=== PATIENT | female | born 1980 | race Caucasian/White ===

== ENCOUNTER → 2016-10-02 | Outpatient (CLI) | payer OTHER ==
[~2016-10-02] MED LIST: BCPILLS PO; CETITAB27 PO; CHOL20005 PO; CYM/30 PO; DESO1TAB33 PO; DULO60CA44 PO; EPP3/2 IM; HYDR200T5 PO; LEVO88TA PO; LISI-787 PO; PANT1TAB48 PO; RANI300T2 PO; SNG10 PO; WLL100 PO
[2016-10-02 15:18] LABS: BASO % 0.2 %; BASO ABS # 0.02 K/uL (0-0.2); COMPLETE YES; HEMATOCRIT 38.7 % (37-47); IG% 0.2 %; LYMPH % 21.1 %; LYMPH ABS # 1.71 K/uL (1.2-3.4); MEAN CELL VOLUME 77.7 fL (80-100); MEAN CORPUSCULAR HEMOGLOBIN 26.3 pg (25-34); MEAN CORPUSCULAR HGB CONC 33.9 g/dl (32-36); MEAN PLATELET VOLUME 10.9 fL (7.4-10.4); NEUT % 70.5 %; PLATELET COUNT 253 K/uL (130-400); RED BLOOD COUNT 4.98 M/uL (4.2-5.4); WHITE BLOOD COUNT 8.12 K/uL (4.8-10.8)
[2016-10-02 15:29] LABS: CREATININE 0.89 mg/dl (0.60-1.20)
== END | disposition home or self-care (01) ==
LOC: C.LAB1850 14:09
PROVIDERS: ATTEND Internal Medicine Rheumatology
DX: M12.30 Palindromic rheumatism, unspecified site (principal); Z79.899 Other long term (current) drug therapy; M25.50 Pain in unspecified joint

== ENCOUNTER → 2016-10-30 | Outpatient (CLI) | payer OTHER ==
--- NOTE | 2016-10-30 12:57 | DIAGNOSTIC IMAGING REPORT ---
LEFT HIP UNILATERAL 2 VIEWS CLINICAL HISTORY: Left hip pain. COMPARISON: None FINDINGS: Alignment of the left hip is anatomic. There is no fracture or suspicious lesion. There is no evidence for avascular necrosis. Joint space is preserved. IMPRESSION: Unremarkable left hip radiographs. Electronically signed by: Georges Meza M.D. 10/30/2016 12:55 PM Dictated Date/Time: 10/30/2016 12:55 PM
--- NOTE | 2016-10-30 13:04 | DIAGNOSTIC IMAGING REPORT ---
LUMBAR SPINE 5 VIEWS HISTORY: Pain M54.16 Lumbar [id number] COMPARISON: None. FINDINGS: There is no fracture. No subluxation. Disc spaces are preserved. IMPRESSION: No fracture or subluxation within the lumbar spine. Electronically signed by: Ronni Corea M.D. 10/30/2016 1:03 PM Dictated Date/Time: 10/30/2016 1:02 PM
[2016-10-30 13:12] LABS: BASO % 0.4 %; BASO ABS # 0.04 K/uL (0-0.2); COMPLETE YES; EOS % 1.2 %; HEMATOCRIT 40.9 % (37-47); IG% 0.4 %; LYMPH % 15.9 %; LYMPH ABS # 1.72 K/uL (1.2-3.4); MEAN CELL VOLUME 76.7 fL (80-100); MEAN CORPUSCULAR HEMOGLOBIN 26.8 pg (25-34); MEAN PLATELET VOLUME 11.2 fL (7.4-10.4); MONO % 7.3 %; NEUT % 74.8 %; PLATELET COUNT 252 K/uL (130-400); RED BLOOD COUNT 5.33 M/uL (4.2-5.4); WHITE BLOOD COUNT 10.81 K/uL (4.8-10.8)
[2016-10-30 13:46] LABS: ALT/SGPT 65 U/L (12-78); AST/SGOT 19 U/L (15-37); BLOOD UREA NITROGEN 11 mg/dl (7-18); BUN/CREATININE RATIO 13.4 (10-20); CALCIUM 9.1 mg/dl (8.5-10.1); CARBON DIOXIDE 27 mmol/L (21-32); CHLORIDE 100 mmol/L (98-107); CREATININE 0.84 mg/dl (0.60-1.20); GLUCOSE 81 mg/dl (70-99); POTASSIUM 3.9 mmol/L (3.5-5.1); SODIUM 138 mmol/L (136-145)
[2016-10-30 13:56] LABS: ALB/GLOB RATIO 1.1 (0.9-2); ALKALINE PHOSPHATASE 120 U/L (45-117)
== END | disposition home or self-care (01) ==
LOC: C.RAD1850 11:39
PROVIDERS: ATTEND Internal Medicine
DX: M54.16 Radiculopathy, lumbar region (principal); E03.9 Hypothyroidism, unspecified; R00.0 Tachycardia, unspecified; E55.9 Vitamin D deficiency, unspecified

== ENCOUNTER → 2016-12-05 | Day surgery (SDC) | payer OTHER ==
[2016-11-22 14:47] VITALS: BMI 35.0
[~2016-12-05] VITALS: Ht 149.9 cm; Wt 77.3 kg
[~2016-12-05] MED LIST changes: -DESO1TAB33 PO; +FENTANYL CITRATE INJ 50 MCG/1 ML 2 ML VIAL ONE; +KETAMINE HCL INJ 50 MG/ML 10 ML VIAL ONE; +LABETALOL HCL IV 5 MG/ML 20ML IV ONE; +LIDOCAINE HCL 2% 2 ML VIAL (20MG/ML) ONE; +MIDAZOLAM HCL 1 MG/ML 2ML VIAL ONE; +ONDANSETRON INJ 2 MG/ML 2 ML VIAL ONE; +SODIUM CHLORIDE 0.9% 500ML 500 ML IV ONE; +SODIUM CHLORIDE 0.9% INJ 10 ML VIAL ONE; -WLL100 PO
[2016-12-05 08:34] VITALS: TEMP 36.6
--- NOTE | 2016-12-05 08:35 | Endo History and Physical ---
History & Physical Date of Service: Dec 05, 2016. Chief Complaint: Change in bowel habits Referring Physician: Dr. Solorzano History of Present Illness 36 yo CF who presents for colonoscopy secondary to change in bowel habits. Past Medical History Anxiety, Reflux, Hypertension, Thyroid Disease, Depression Past Surgical History Hx Cardiac Surgery: No Hx Internal Defibrillator: No Hx Pacemaker: No Hx Abdominal Surgery: No Hx of Implantable Prosthesis: No Hx Post-Op Nausea and Vomiting: No Hx Cancer Surgery: No Hx Thoracic Surgery: No Hx Orthopedic: No Hx Urinary Tract Surgery: No Family History Polyp, IBD Social History Smoking Status: Former Smoker Hx Substance Use: No Hx Alcohol Use: Yes (QUIT 4-5 YEARS AGO) Allergies Coded Allergies: Codeine (Verified Allergy, Severe, ANAPHYLAXIS, 11/22/16) Egg (Verified Allergy, Severe, ANAPHYLAXIS, 11/22/16) Peanut (Verified Allergy, Severe, ANAPHYLAXIS, 11/22/16) Shellfish (Verified Allergy, Severe, ANAPHYLAXIS, 11/22/16) Uncoded Allergies: CATS,DOGS,GRASS,POLLEN,MOLD,TREES,DUST,MITES (Allergy, Unknown, 10/22/02) EGGS,SOY,NUTS,FRESH VEGGIES/FRUIT,TOMATO,CORN,BEEF,SEAFOOD,COCONUT ( Allergy, Unknown, 10/22/02) Current Medications Reported Home Medications Medications Dose Route/Sig Max Daily Dose Days Date Category Control Pills (Miscellaneous) Tab 1 Tab PO QPM 11/22/16 Reported Cymbalta (Duloxetine Hcl) 60 Mg Cap 60 Mg PO QAM 11/22/16 Reported Cymbalta (Duloxetine Hcl) 30 Mg Cap 30 Mg PO QAM 11/22/16 Reported Plaquenil (Hydroxychloroquine Sulfate) 200 Mg Tab 200 Mg PO BID 11/22/16 Reported Vitamin D3 (Cholecalciferol) 2,000 Unit Tab 1 Tab PO HS 08/18/15 Reported Zantac (Ranitidine HCl) 300 Mg Tab 300 Mg PO BID 08/18/15 Reported Protonix (Pantoprazole) 40 Mg Tab 40 Mg PO QAM 08/18/15 Reported Montelukast Sodium (Montelukast Sod) 10 Mg Tab 1 Tab PO QAM 08/18/15 Reported Zestoretic 20-12.5 mg (Lisinopril & Hydrochlorothiazi) 1 Tab Tab 2 Tab PO QAM 08/18/15 Reported Synthroid (Levothyroxine Sodium) 88 Mcg Tab 88 Mcg PO QAM 08/18/15 Reported Epipen (Epinephrine) 0.3 Mg/0.3 Ml Inj 0.3 Mg IM UD PRN 08/18/15 Reported Zyrtec-D Er 5MG/120MG (Cetirizine/Pseudoephedrine) Tabcr 1 Tab PO Q12H 06/23/13 Reported Vital Signs Weight (Kilograms): 77.27 Height (Feet): 4 Height (Inches): 10.5 Physical Exam General Appearance: WD/WN, no apparent distress Respiratory/Chest: Auscultation: breath sounds normal Cardiovascular: Heart Auscultation: RRR Abdomen: Bowel Sounds: normal Inspection & Palpation: soft, non-distended, no tenderness, guarding & rebound Assessment and Plan Assessment: 36 yo CF who presents for colonoscopy secondary to change in bowel habits. Plan: Proceed with colonoscopy.
[2016-12-05 08:37] VITALS: Ht 149.9 cm; Wt 77.3 kg
--- NOTE | 2016-12-05 09:07 | Discharge Instructions ---
Endoscopy Patient Instructions Date / Procedure(s) Performed Dec 05, 2016. Colonoscopy Allergy Information Coded Allergies: Codeine (Verified Allergy, Severe, ANAPHYLAXIS, 11/22/16) Egg (Verified Allergy, Severe, ANAPHYLAXIS, 11/22/16) Peanut (Verified Allergy, Severe, ANAPHYLAXIS, 11/22/16) Shellfish (Verified Allergy, Severe, ANAPHYLAXIS, 11/22/16) Uncoded Allergies: CATS,DOGS,GRASS,POLLEN,MOLD,TREES,DUST,MITES (Allergy, Unknown, 10/22/02) EGGS,SOY,NUTS,FRESH VEGGIES/FRUIT,TOMATO,CORN,BEEF,SEAFOOD,COCONUT ( Allergy, Unknown, 10/22/02) Discharge Date / Findings Dec 05, 2016. Colon polyp Terminal ileitis s/p biopsies Ascending colon nodule Medication Instructions OK to resume all medications today as prescribed Reported Home Medications Medications Dose Route/Sig Max Daily Dose Days Date Category Control Pills (Miscellaneous) Tab 1 Tab PO QPM 11/22/16 Reported Cymbalta (Duloxetine Hcl) 60 Mg Cap 60 Mg PO QAM 11/22/16 Reported Cymbalta (Duloxetine Hcl) 30 Mg Cap 30 Mg PO QAM 11/22/16 Reported Plaquenil (Hydroxychloroquine Sulfate) 200 Mg Tab 200 Mg PO BID 11/22/16 Reported Vitamin D3 (Cholecalciferol) 2,000 Unit Tab 1 Tab PO HS 08/18/15 Reported Zantac (Ranitidine HCl) 300 Mg Tab 300 Mg PO BID 08/18/15 Reported Protonix (Pantoprazole) 40 Mg Tab 40 Mg PO QAM 08/18/15 Reported Montelukast Sodium (Montelukast Sod) 10 Mg Tab 1 Tab PO QAM 08/18/15 Reported Zestoretic 20-12.5 mg (Lisinopril & Hydrochlorothiazi) 1 Tab Tab 2 Tab PO QAM 08/18/15 Reported Synthroid (Levothyroxine Sodium) 88 Mcg Tab 88 Mcg PO QAM 08/18/15 Reported Epipen (Epinephrine) 0.3 Mg/0.3 Ml Inj 0.3 Mg IM UD PRN 08/18/15 Reported Zyrtec-D Er 5MG/120MG (Cetirizine/Pseudoephedrine) Tabcr 1 Tab PO Q12H 06/23/13 Reported Provider Instructions Activity Restrictions - No exercising or heavy lifting for 24 hours. - Do not drink alcohol the day of the procedure. - Do not drive a car or operate machinery until the day after the procedure. - Do not make any important decisions or sign important papers in 24 hours after the procedure. Following Day: - Return to full activity which may include returning to work/school. Diet Start your diet with liquids and light foods (jello, soup, juice, toast). Then eat your usual diet if not nauseated. Treatment For Common After Affects For mild abdominal pain, bloating, or excessive gas: - Rest - Eat lightly - Lie on right side Follow-Up Information Follow-up with DR FISHER as scheduled Anesthesia Information What You Should Know You have had a procedure that required some medicine to reduce anxiety and discomfort. This treatment is called moderate sedation. After receiving the treatment, you may be sleepy, but you will be able to breathe on your own. The effects of the treatment may last for several hours. Follow these instructions along with Activity/Diet recommendations noted above: * Do NOT do anything where dizziness or clumsiness would be dangerous. * Rest quietly at home today, then you can be up and about tomorrow. * Have a responsible person stay with you the rest of today. * You may have had an I.V. today. If so, you may take the dressing off later today. Recommendations Call your doctor if: * Trouble breathing * Continuous vomiting for more than 24 hours * Temperature above 101 degrees * Severe abdominal pain or bloating * Pain not relieved by pain medicine ordered * There is increased drainage or redness from any incision * A large amount of rectal bleeding greater than 2-3 tablespoons. (If you had a polyp/s removed or have hemorrhoids, a small amount of blood - from the rectum is to be expected.) * You have any unanswered questions or concerns. IN THE EVENT OF A SERIOUS EMERGENCY, GO TO THE NEAREST EMERGENCY ROOM Your discharge instructions were prepared by provider Live Villagomez. Patient Instructions Signature Page Santa Reyes Patient (or Guardian) Signature/Date: I have read and understand the instructions given to me by my caregivers. Caregiver/RN/Doctor Signature/Date: The above-named patient and/or guardian has received patient instructions on this date. + Original Patient Signature Page (only) stays with chart. Please make copy for patient.
--- NOTE | 2016-12-05 09:10 | GI REPORT ---
Procedure Date: 12/05/2016 8:47 AM Procedure: Colonoscopy Indications: Change in bowel habits Medicines: Monitored Anesthesia Care Complications: No immediate complications. Estimated Blood Loss: Estimated blood loss: none. Procedure: Pre-Anesthesia Assessment: - Prior to the procedure, a History and Physical was performed, and patient medications and allergies were reviewed. The patient's tolerance of previous anesthesia was also reviewed. The risks and benefits of the procedure and the sedation options and risks were discussed with the patient. All questions were answered, and informed consent was obtained. Prior Anticoagulants: The patient has taken no previous anticoagulant or antiplatelet agents. ASA Grade Assessment: III - A patient with severe systemic disease. After reviewing the risks and benefits, the patient was deemed in satisfactory condition to undergo the procedure. After I obtained informed consent, the scope was passed under direct vision. Throughout the procedure, the patient's blood pressure, pulse, and oxygen saturations were monitored continuously. The Scope was introduced through the anus and advanced to the terminal ileum. The colonoscopy was performed without difficulty. The patient tolerated the procedure well. The quality of the bowel preparation was good. The terminal ileum, ileocecal valve, appendiceal orifice, and rectum were photographed. Findings: Localized inflammation, mild in severity and characterized by erosions was found in the terminal ileum. Biopsies were taken with a cold forceps for histology. One 10 mm mucosal nodule was found in the ascending colon. Biopsies were taken with a cold forceps for histology. A 8 mm polyp was found at the hepatic flexure. The polyp was flat. The polyp was removed with a hot snare. Resection and retrieval were complete. Impression: - Ileitis. Biopsied. - Mucosal nodule in the ascending colon. Biopsied. - One 8 mm polyp at the hepatic flexure, removed with a hot snare. Resected and retrieved. Recommendation: - Resume previous diet. - Continue present medications. - Repeat colonoscopy for surveillance based on pathology results. - Return to primary care physician as previously scheduled. Live Villagomez, DO 12/05/2016 9:10:11 AM This report has been signed electronically. Note Initiated On: 12/05/2016 8:47 AM I attest to the content of the Intraoperative Record and orders documented therein, exceptions below
[2016-12-05 09:25] VITALS: PULSE 95
--- NOTE | 2016-12-05 09:33 | Anesthesiology Progress Note ---
Anesthesia Post Op Note Date & Time Dec 05, 2016 at 09:32 Vital Signs Pain Intensity: 0 Vital Signs Past 12 Hours Date Time Temp Pulse Resp B/P Pulse Ox O2 Delivery O2 Flow Rate FiO2 12/05/16 09:15 101 18 134/100 100 Room Air 12/05/16 08:34 36.6 121 20 137/101 97 Room Air Notes Mental Status: alert / awake / arousable, participated in evaluation Pt Amnestic to Procedure: Yes Nausea / Vomiting: adequately controlled Pain: adequately controlled Airway Patency, RR, SpO2: stable & adequate BP & HR: stable & adequate, see Notes Hydration State: stable & adequate Anesthetic Complications: no major complications apparent The patient was given labetalol intraoperatively. Her BP in recovery remains at her baseline. The patient was told to take her home BP meds.
[2016-12-05 09:35] VITALS: BP 126/96; O2SAT 100
== END | disposition home or self-care (01) ==
LOC: C.GI 08:12
PROVIDERS: ATTEND Internal Medicine
DX: K52.9 Noninfective gastroenteritis and colitis, unspecified (principal); K63.5 Polyp of colon; K62.89 Other specified diseases of anus and rectum; K21.9 Gastro-esophageal reflux disease without esophagitis; F41.9 Anxiety disorder, unspecified; E07.9 Disorder of thyroid, unspecified; F32.9 Major depressive disorder, single episode, unspecified; Z83.79 Family history of other diseases of the digestive system; Z87.891 Personal history of nicotine dependence; Z88.5 Allergy status to narcotic agent

== ENCOUNTER → 2016-12-13 | Day surgery (SDC) | payer OTHER ==
[~2016-12-13] VITALS: Ht 149.9 cm; Wt 78.0 kg
[~2016-12-13] MED LIST changes: -FENTANYL CITRATE INJ 50 MCG/1 ML 2 ML VIAL ONE; -KETAMINE HCL INJ 50 MG/ML 10 ML VIAL ONE; -LABETALOL HCL IV 5 MG/ML 20ML IV ONE; -LIDOCAINE HCL 2% 2 ML VIAL (20MG/ML) ONE; -MIDAZOLAM HCL 1 MG/ML 2ML VIAL ONE; -ONDANSETRON INJ 2 MG/ML 2 ML VIAL ONE; -SODIUM CHLORIDE 0.9% 500ML 500 ML IV ONE; -SODIUM CHLORIDE 0.9% INJ 10 ML VIAL ONE
[2016-12-13 09:51] VITALS: BP 131/91; PULSE 100; O2SAT 96; Ht 149.9 cm; Wt 78.0 kg
--- NOTE | 2016-12-13 10:13 | History & Physical Bridge Note ---
H&P Re-Evaluation Bridge Note: I have examined the patient, reviewed the History & Physical and in the interval since the performance of the History & Physical I have noted the following changes of clinical significance: nO RECENT SYNCOPE
--- NOTE | 2016-12-13 14:44 | TILT TABLE TEST RESULTS ---
PROCEDURE PERFORMED: 1. Head up tilt table testing. STAFF ON LINE CSR: Zachary Hines MD INDICATIONS: Mrs. Santa Reyes is a 36-year-old woman with symptoms of dizziness and tachycardia associated with changes in position. PROCEDURE IN DETAIL: The patient was informed of the risks, benefits, alternatives to the intended procedure. She understood such and wished to proceed. She was taken to the electrophysiology lab where she was placed in the supine position. Baseline blood pressure and pulse rate were obtained and she was monitored continuously with telemetry during today's test. The patient was subsequently tilted up to 70 degrees and her symptoms monitored for a total of 30 minutes. Subsequent to this timeframe, the patient was returned to time position and hemodynamics were about to return to normal prior to discharge. The patient tolerated the procedure well and there were no immediate complications. FINDINGS: 1. The patient's baseline hemodynamics include a blood pressure 131/91 with a heart rate of 96. With head up tilt table testing, there was no significant change in the blood pressure. There was a gradual increase in the heart rate to 121 beats per minute at 20 minutes. No symptoms were reported during the test. VITAL SIGNS: At time of discharge include blood pressure of 122/87 with a pulse of 93. IMPRESSION: 1. Normal head up tilt table test without meeting criteria for orthostatic hypotension or pots. No syncope occurred during the test. No evidence of cardioinhibitory or vasodepressor effect. No symptoms reported during the test.
== END | disposition home or self-care (01) ==
LOC: C.CATH 09:22
PROVIDERS: ATTEND Internal Medicine Cardiovascular Disease
DX: R42 Dizziness and giddiness (principal); R00.0 Tachycardia, unspecified; I49.8 Other specified cardiac arrhythmias; I10 Essential (primary) hypertension; E03.9 Hypothyroidism, unspecified

== ENCOUNTER → 2016-12-17 | Outpatient (CLI) | payer OTHER ==
[2016-12-17 16:48] LABS: BASO % 0.4 %; BASO ABS # 0.04 K/uL (0-0.2); COMPLETE YES; EOS % 1.3 %; HEMATOCRIT 39.2 % (37-47); IG% 0.2 %; LYMPH % 17.6 %; LYMPH ABS # 1.68 K/uL (1.2-3.4); MEAN CORPUSCULAR HEMOGLOBIN 27.2 pg (25-34); MEAN CORPUSCULAR HGB CONC 34.4 g/dl (32-36); MEAN PLATELET VOLUME 10.9 fL (7.4-10.4); MONO % 7.7 %; NEUT % 72.8 %; PLATELET COUNT 265 K/uL (130-400); RED BLOOD COUNT 4.96 M/uL (4.2-5.4); WHITE BLOOD COUNT 9.57 K/uL (4.8-10.8)
[2016-12-17 16:58] LABS: ALT/SGPT 28 U/L (12-78); AST/SGOT 18 U/L (15-37); C-REACTIVE PROTEIN 1.47 mg/dl (0-0.29); CREATININE 0.78 mg/dl (0.60-1.20)
[2016-12-17 17:01] LABS: ALKALINE PHOSPHATASE 121 U/L (45-117)
[2016-12-17 17:09] LABS: HEPATITIS B AB POS
[2016-12-19 11:51] LABS: QUANTIF TB AG-NIL 0.05 IU/ML; QUANTIFERON NIL 0.04 IU/ML
--- NOTE | 2017-01-11 16:54 | CODING QUERY MEDICAL NECESSITY ---
SUPPORTING DIAGNOSIS NEEDED A supporting diagnosis is required for the test/procedure performed on this patient in order for us to be reimbursed by the patient's insurance. Please provide a supporting diagnosis for the following test/procedure listed below next to the test name along with your signature. *If there is no additional diagnosis for this patient that would support the following test/procedure please document that below next to the test/procedure. Test(s)/Procedure(s) that require a supporting diagnosis: DOS: 12/17/16 * ACUTE HEPATITIS PANEL DIAGNOSIS: Provider Signature: Date: Thank you [facility] Information Management Once completed, please kindly fax back to [phone] For questions please call [phone]
== END | disposition home or self-care (01) ==
LOC: C.LAB1850 15:13
PROVIDERS: ATTEND Physician Assistant
DX: M12.30 Palindromic rheumatism, unspecified site (principal); Z79.899 Other long term (current) drug therapy; K50.00 Crohn's disease of small intestine without complications; K52.9 Noninfective gastroenteritis and colitis, unspecified

== ENCOUNTER → 2017-01-16 | Outpatient (CLI) | payer OTHER ==
[2017-01-16 14:28] LABS: BASO % 0.3 %; BASO ABS # 0.02 K/uL (0-0.2); COMPLETE YES; EOS % 1.7 %; IG% 0.6 %; LYMPH ABS # 1.58 K/uL (1.2-3.4); MEAN CELL VOLUME 86.1 fL (80-100); MEAN CORPUSCULAR HEMOGLOBIN 26.9 pg (25-34); MEAN CORPUSCULAR HGB CONC 31.2 g/dl (32-36); MEAN PLATELET VOLUME 10.7 fL (7.4-10.4); MONO % 5.7 %; NEUT % 69.7 %; PLATELET COUNT 300 K/uL (130-400); RED BLOOD COUNT 4.76 M/uL (4.2-5.4); WHITE BLOOD COUNT 7.19 K/uL (4.8-10.8)
[2017-01-16 14:43] LABS: ALT/SGPT 34 U/L (12-78); AST/SGOT 11 U/L (15-37); BLOOD UREA NITROGEN 10 mg/dl (7-18); BUN/CREATININE RATIO 16.7 (10-20); CALCIUM 8.7 mg/dl (8.5-10.1); CARBON DIOXIDE 27 mmol/L (21-32); CHLORIDE 108 mmol/L (98-107); CREATININE 0.61 mg/dl (0.60-1.20); GLUCOSE 104 mg/dl (70-99); POTASSIUM 3.6 mmol/L (3.5-5.1); SODIUM 141 mmol/L (136-145)
[2017-01-16 14:46] LABS: ALB/GLOB RATIO 1.2 (0.9-2); ALKALINE PHOSPHATASE 90 U/L (45-117)
== END | disposition home or self-care (01) ==
LOC: C.LAB1850 13:11
PROVIDERS: ATTEND Registered Nurse
DX: K50.90 Crohn's disease, unspecified, without complications (principal)

== ENCOUNTER → 2017-03-01 | Outpatient (CLI) | payer OTHER ==
[2017-03-01 15:03] LABS: C-REACTIVE PROTEIN < 0.29 mg/dl (0-0.29)
== END | disposition home or self-care (01) ==
LOC: C.LAB1850 13:37
PROVIDERS: ATTEND Internal Medicine
DX: K50.90 Crohn's disease, unspecified, without complications (principal)

== ENCOUNTER → 2017-04-12 | Outpatient (CLI) | payer OTHER | END | disposition home or self-care (01) | LOC: C.LAB1850 14:32 | PROVIDERS: ATTEND Internal Medicine | DX: K50.90 Crohn's disease, unspecified, without complications (principal) ==

== ENCOUNTER → 2017-04-23 | Outpatient (CLI) | payer OTHER | END | disposition home or self-care (01) | LOC: C.LAB1850 12:39 | PROVIDERS: ATTEND Physician Assistant | DX: R10.9 Unspecified abdominal pain (principal); R19.7 Diarrhea, unspecified; K92.1 Melena ==

== ENCOUNTER → 2017-07-03 | Outpatient (CLI) | payer OTHER ==
[2017-07-03 10:37] LABS: BASO % 0.4 %; BASO ABS # 0.04 K/uL (0-0.2); COMPLETE YES; EOS % 1.5 %; HEMATOCRIT 43.7 % (37-47); IG% 0.3 %; LYMPH % 26.8 %; LYMPH ABS # 2.51 K/uL (1.2-3.4); MEAN CELL VOLUME 86.7 fL (80-100); MEAN CORPUSCULAR HEMOGLOBIN 30.2 pg (25-34); MEAN CORPUSCULAR HGB CONC 34.8 g/dl (32-36); MEAN PLATELET VOLUME 11.2 fL (7.4-10.4); MONO % 9.7 %; NEUT % 61.3 %; PLATELET COUNT 284 K/uL (130-400); RED BLOOD COUNT 5.04 M/uL (4.2-5.4); WHITE BLOOD COUNT 9.37 K/uL (4.8-10.8)
== END | disposition home or self-care (01) ==
LOC: C.LAB1850 09:54
PROVIDERS: ATTEND Physician Assistant
DX: I10 Essential (primary) hypertension (principal)

== ENCOUNTER → 2017-08-20 | Outpatient (CLI) | payer OTHER ==
[~2017-08-20] MED LIST changes: +PANT1TAB3 PO; -PANT1TAB48 PO
[2017-08-20 14:36] LABS: BASO % 0.4 %; BASO ABS # 0.03 K/uL (0-0.2); COMPLETE YES; EOS % 1.6 %; HEMATOCRIT 39.6 % (37-47); IG% 0.3 %; LYMPH % 27.6 %; LYMPH ABS # 2.08 K/uL (1.2-3.4); MEAN CELL VOLUME 86.7 fL (80-100); MEAN CORPUSCULAR HGB CONC 34.6 g/dl (32-36); MEAN PLATELET VOLUME 11.1 fL (7.4-10.4); MONO % 10.1 %; PLATELET COUNT 228 K/uL (130-400); RED BLOOD COUNT 4.57 M/uL (4.2-5.4); WHITE BLOOD COUNT 7.54 K/uL (4.8-10.8)
[2017-08-20 15:03] LABS: ALT/SGPT 29 U/L (12-78); BLOOD UREA NITROGEN 8 mg/dl (7-18); BUN/CREATININE RATIO 7.9 (10-20); CALCIUM 8.6 mg/dl (8.5-10.1); CARBON DIOXIDE 27 mmol/L (21-32); CHLORIDE 105 mmol/L (98-107); CREATININE 0.98 mg/dl (0.60-1.20); GLUCOSE 82 mg/dl (70-99); POTASSIUM 3.7 mmol/L (3.5-5.1); SODIUM 137 mmol/L (136-145)
[2017-08-20 15:14] LABS: ALB/GLOB RATIO 1.1 (0.9-2); ALKALINE PHOSPHATASE 83 U/L (45-117); AST/SGOT 17 U/L (15-37)
== END | disposition home or self-care (01) ==
LOC: C.LAB 13:35
PROVIDERS: ATTEND Physician Assistant
DX: E03.9 Hypothyroidism, unspecified (principal); K50.90 Crohn's disease, unspecified, without complications

== ENCOUNTER → 2017-08-27 | Outpatient (CLI) | payer OTHER | END | disposition home or self-care (01) | LOC: C.LAB1850 12:16 | PROVIDERS: ATTEND Internal Medicine | DX: K50.00 Crohn's disease of small intestine without complications (principal) ==

== ENCOUNTER → 2017-11-22 | Outpatient (CLI) | payer OTHER ==
[2017-11-22 17:25] LABS: BASO % 0.2 %; BASO ABS # 0.02 K/uL (0-0.2); EOS % 4.5 %; HEMOGLOBIN 14.2 g/dL (12.0-16.0); IG# 0.03 K/uL (0.00-0.02); LYMPH % 26.1 %; MEAN CELL VOLUME 86.8 fL (80-100); MEAN CORPUSCULAR HEMOGLOBIN 29.3 pg (25-34); MEAN CORPUSCULAR HGB CONC 33.8 g/dl (32-36); MEAN PLATELET VOLUME 11.2 fL (7.4-10.4); MONO % 7.5 %; MONO ABS # 0.66 K/uL (0.11-0.59); NEUT % 61.4 %; PLATELET COUNT 194 K/uL (130-400); RED CELL DISTRIBUTION WIDTH CV 14.1 % (11.5-14.5); RED CELL DISTRIBUTION WIDTH SD 44.5 fL (36.4-46.3); WHITE BLOOD COUNT 8.81 K/uL (4.8-10.8)
[2017-11-22 17:39] LABS: ALBUMIN 3.7 gm/dl (3.4-5.0); ALT/SGPT 29 U/L (12-78); BLOOD UREA NITROGEN 9 mg/dl (7-18); CALCIUM 8.8 mg/dl (8.5-10.1); CARBON DIOXIDE 26 mmol/L (21-32); CREATININE 0.88 mg/dl (0.60-1.20); GLUCOSE 95 mg/dl (70-99); POTASSIUM 3.5 mmol/L (3.5-5.1); SODIUM 136 mmol/L (136-145)
[2017-11-22 17:42] LABS: ALKALINE PHOSPHATASE 80 U/L (45-117); AST/SGOT 14 U/L (15-37); TOTAL PROTEIN 7.3 gm/dl (6.4-8.2)
== END | disposition home or self-care (01) ==
LOC: C.LAB1850 16:10
PROVIDERS: ATTEND Physician Assistant
DX: K50.90 Crohn's disease, unspecified, without complications (principal)

== ENCOUNTER → 2017-12-13 | Outpatient (CLI) | payer OTHER ==
--- NOTE | 2017-12-13 10:10 | DIAGNOSTIC IMAGING REPORT ---
DUPLEX RENAL ARTERY ULTRASOUND CLINICAL HISTORY: R09.89 Labile hypertension [id number] COMPARISON STUDY: Abdomen and pelvis CT 03/06/2016. FINDINGS: Normal velocities and waveforms seen within the bilateral renal arteries. Peak systolic velocity within the right renal artery is 156 cm/s. The peak systolic velocity within the left renal artery is 73 cm/s. The bilateral renal veins are patent. Normal resistive indices within the bilateral renal arcuate arteries. The right kidney measures 9.8 cm and the left kidney measures 10.1 cm. No hydronephrosis. IMPRESSION: No evidence for renal artery stenosis. Electronically signed by: Cliff Godfrey M.D. 12/13/2017 10:09 AM Dictated Date/Time: 12/13/2017 10:07 AM
== END | disposition home or self-care (01) ==
LOC: C.ULTR 08:54
PROVIDERS: ATTEND Internal Medicine
DX: R09.89 Other specified symptoms and signs involving the circulatory and respiratory systems (principal)

== ENCOUNTER → 2017-12-19 | Outpatient (CLI) | payer OTHER ==
[2017-12-23 11:57] LABS: QUANTIF MITOGEN-NIL 8.75 IU/ML; QUANTIFERON NEGATIVE (NEGATIVE); QUANTIFERON NIL 0.02 IU/ML
== END | disposition home or self-care (01) ==
LOC: C.LAB1850 09:40
PROVIDERS: ATTEND Internal Medicine
DX: K50.90 Crohn's disease, unspecified, without complications (principal); R09.89 Other specified symptoms and signs involving the circulatory and respiratory systems; E55.9 Vitamin D deficiency, unspecified; E03.9 Hypothyroidism, unspecified

== ENCOUNTER → 2017-12-25 | Outpatient (CLI) | payer OTHER | END | disposition home or self-care (01) | LOC: C.LAB1850 08:07 | PROVIDERS: ATTEND Internal Medicine | DX: R09.89 Other specified symptoms and signs involving the circulatory and respiratory systems (principal) ==

== ENCOUNTER → 2018-04-25 | Outpatient (CLI) | payer OTHER ==
[~2018-04-25] MED LIST changes: +AMLO2.5T PO; +AMLO5TAB3 PO; +FLUT0.15; -HYDR200T5 PO; +NORE0.3527 PO; +RMCI
== END | disposition home or self-care (01) ==
LOC: C.LAB1850 08:37
PROVIDERS: ATTEND Internal Medicine Endocrinology, Diabetes & Metabolism
DX: E03.9 Hypothyroidism, unspecified (principal)

== ENCOUNTER → 2018-05-02 | Outpatient (CLI) | payer OTHER ==
[~2018-05-02] VITALS: Ht 148.6 cm; Wt 87.3 kg
[2018-05-02 14:13] VITALS: BP 132/87; PULSE 125; Ht 148.6 cm; Wt 87.3 kg
== END | disposition home or self-care (01) ==
LOC: C.NEUR 14:03
PROVIDERS: ATTEND Internal Medicine Pulmonary Disease
DX: G47.19 Other hypersomnia (principal); R06.83 Snoring; R53.83 Other fatigue; E66.9 Obesity, unspecified; R63.5 Abnormal weight gain

== ENCOUNTER 2018-09-14 23:39 | Observation (INO) ==
[2018-09-15 00:33] LABS: Basophils # (auto) 0.01 K/uL (0-0.2); Basophils % (auto) 0.1 %; Eosinophils # (auto) 0.04 K/uL (0-0.5); Eosinophils % (auto) 0.5 %; Hematocrit (blood only) 37.1 % (37-47); Hemoglobin 12.7 g/dL (12.0-16.0); Immature Granulocytes # (auto) 0.02 K/uL (0.00-0.02); Immature Granulocytes % (auto) 0.2 %; Lymphocytes # (auto) 1.43 K/uL (1.2-3.4); Lymphocytes % (auto) 16.1 %; Mean Corpuscular Hgb Conc 34.2 g/dL (32-36); Mean Corpuscular Volume 85.7 fL (80-100); Mean Platelet Volume 11.6 fL (7.4-10.4); Monocytes # (auto) 0.71 K/uL (0.11-0.59); Neutrophils # (auto) 6.67 K/uL (1.4-6.5); Neutrophils % (auto) 75.1 %; Platelet Count 249 K/uL (130-400); RDW Coefficient of Variation 14.6 % (11.5-14.5); RDW Standard Deviation 45.7 fL (36.4-46.3); Red Blood Count 4.33 M/uL (4.2-5.4); White Blood Count 8.88 K/uL (4.8-10.8)
[2018-09-15 00:51] LABS: Appearance Urine Clear (Clear); Color Urine Dark Yellow; Glucose Urine UA Negative (Negative); Ketones Urine Negative (Negative); Leukocyte Esterase Urine Negative (Negative); Nitrite Urine Negative (Negative); Protein Urine Negative (Negative); Specific Gravity Urine 1.018 (1.000-1.030); Urobilinogen Urine Negative (Negative)
[2018-09-15 00:56] LABS: Bilirubin Urine 1+ (Negative)
[2018-09-15 00:57] LABS: Ictotest Urine Positive (Negative)
[2018-09-15 00:59] LABS: Albumin Level 3.6 gm/dl (3.4-5.0); BUN Creatinine Ratio 10.1 (10-20); Bilirubin,Total 1.2 mg/dl (0.2-1); Calcium 8.6 mg/dl (8.5-10.1); Creatinine Clr Calc Pharmacy 88.3 ml/min; Est GFR (African American) 105.2; Est GFR (Non-African American) 90.8; Globulin 3.6 gm/dl (2.5-4.0); Potassium 3.8 mmol/L (3.5-5.1); Total Protein 7.2 gm/dl (6.4-8.2)
[2018-09-15 07:12] LABS: INR 1.1 (0.9-1.1); Prothrombin Time 10.7 Seconds (9.0-12.0)
[2018-09-15 07:20] LABS: Bilirubin Direct 0.6 mg/dl (0-0.2); Bilirubin,Total 1.1 mg/dl (0.2-1); Magnesium 2.1 mg/dl (1.8-2.4); Total Protein 6.4 gm/dl (6.4-8.2)
[2018-09-15 08:11] LABS: Hepatitis B Surface Antigen Neg (Neg)
[2018-09-15 08:40] LABS: Hepatitis C IgG 13Yrs+Old_Rflx Neg (Neg)
[2018-09-16 07:14] LABS: Basophils # (auto) 0.02 K/uL (0-0.2); Basophils % (auto) 0.5 %; Eosinophils # (auto) 0.08 K/uL (0-0.5); Hematocrit (blood only) 33.7 % (37-47); Hemoglobin 11.2 g/dL (12.0-16.0); Immature Granulocytes # (auto) 0.02 K/uL (0.00-0.02); Immature Granulocytes % (auto) 0.5 %; Lymphocytes # (auto) 1.68 K/uL (1.2-3.4); Mean Corpuscular Hgb Conc 33.2 g/dL (32-36); Mean Corpuscular Volume 86.6 fL (80-100); Mean Platelet Volume 11.1 fL (7.4-10.4); Monocytes # (auto) 0.34 K/uL (0.11-0.59); Monocytes % (auto) 8.3 %; Neutrophils # (auto) 1.96 K/uL (1.4-6.5); Neutrophils % (auto) 47.7 %; Platelet Count 194 K/uL (130-400); RDW Coefficient of Variation 14.8 % (11.5-14.5); RDW Standard Deviation 46.6 fL (36.4-46.3); Red Blood Count 3.89 M/uL (4.2-5.4)
[2018-09-16 07:48] LABS: Albumin Level 2.9 gm/dl (3.4-5.0); Calcium 8.2 mg/dl (8.5-10.1); Creatinine Clr Calc Pharmacy 100.6 ml/min; Est GFR (African American) 123.1; Est GFR (Non-African American) 106.2; Potassium 3.6 mmol/L (3.5-5.1)
[2018-09-16 07:53] LABS: Albumin Globulin Ratio 0.9 (0.9-2); Bilirubin,Total 0.6 mg/dl (0.2-1); Globulin 3.3 gm/dl (2.5-4.0); Total Protein 6.2 gm/dl (6.4-8.2)
== END 2018-09-16 15:34 | disposition home or self-care (01) ==
LOC: ED 23:39 → 3N 23:39 → SUATTDRO 09-15 05:21 → 3N 09-15 06:10

== ENCOUNTER 2018-09-18 | Observation (INO) ==
[2018-09-18] MEDS ORDERED: DiphenhydrAMINE HCL 50 MG/ML VIAL IV STA (00:25)
[2018-09-18] MEDS ORDERED: METOCLOPRAMIDE HCL INJ 5 MG/ML 2 ML VIAL IV STA (00:25)
[2018-09-18] MEDS ORDERED: DICYCLOMINE HCL 10 MG/ML 2 ML AMP/VIAL IM ONE (00:25)
[2018-09-18] MEDS ORDERED: SODIUM CHLORIDE 0.9% 1000ML 1,000 ML IV SCH (00:30)
[2018-09-18 01:09] LABS: Basophils # (auto) 0.02 K/uL (0-0.2); Basophils % (auto) 0.2 %; Eosinophils # (auto) 0.08 K/uL (0-0.5); Hematocrit (blood only) 36.2 % (37-47); Hemoglobin 12.6 g/dL (12.0-16.0); Immature Granulocytes # (auto) 0.04 K/uL (0.00-0.02); Immature Granulocytes % (auto) 0.5 %; Lymphocytes # (auto) 1.18 K/uL (1.2-3.4); Lymphocytes % (auto) 14.4 %; Mean Corpuscular Hgb Conc 34.8 g/dL (32-36); Mean Corpuscular Volume 85.4 fL (80-100); Mean Platelet Volume 11.8 fL (7.4-10.4); Monocytes # (auto) 0.73 K/uL (0.11-0.59); Monocytes % (auto) 8.9 %; Neutrophils # (auto) 6.13 K/uL (1.4-6.5); Platelet Count 232 K/uL (130-400); RDW Coefficient of Variation 14.8 % (11.5-14.5); RDW Standard Deviation 46.2 fL (36.4-46.3); Red Blood Count 4.24 M/uL (4.2-5.4); White Blood Count 8.18 K/uL (4.8-10.8)
[2018-09-18 01:26] LABS: Albumin Level 3.5 gm/dl (3.4-5.0); BUN Creatinine Ratio 8.7 (10-20); Calcium 8.8 mg/dl (8.5-10.1); Creatinine Clr Calc Pharmacy 85.6 ml/min; Est GFR (African American) 102.2; Est GFR (Non-African American) 88.2; Potassium 3.6 mmol/L (3.5-5.1)
[2018-09-18 01:35] LABS: Albumin Globulin Ratio 0.9 (0.9-2); Bilirubin,Total 2.2 mg/dl (0.2-1); Globulin 3.8 gm/dl (2.5-4.0); Total Protein 7.3 gm/dl (6.4-8.2)
[2018-09-18 01:49] LABS: INR 1.1 (0.9-1.1); Partial Thromboplastin Ratio 0.9; Partial Thromboplastin Time 22.4 Seconds (21.0-31.0); Prothrombin Time 10.6 Seconds (9.0-12.0)
--- NOTE | 2018-09-18 01:55 | Emergency Department Note ---
History of Present Illness General Chief complaint: Abdominal Pain Stated complaint: ABDOMINAL PAIN History of Present Illness Maximum Pain Intensity: 9 This 37-year-old presents to the ER complaining of abdominal pain Location: Epigastric region Quality: Crampy Severity: Moderate Duration: Today Timing: Started after eating Context: Symptoms persisted and patient came here Modifying factors: better with food; worse with food Patient was just discharged from this facility yesterday. She is admitted for elevated liver enzymes and possible biliary colic. Liver enzymes were trending down and hepatitis screen was negative and patient was discharged. She was feeling better. She states she went home and had pasta with cheese sauce and symptoms reoccurred again. Patient states the pain resolved after some Tylenol but then recurred today after eating. Pain got worse and the patient came in. Patient denies chest pain, dyspnea, fevers, diarrhea, urinary symptoms. Home Medications Home Medications Medication Instructions Recorded Confirmed Type Alma Rosa 0.35 mg PO DAILY 09/15/18 09/18/18 History amlodipine [Norvasc] 10 mg PO DAILY 09/15/18 09/18/18 History cetirizine-pseudoephedrine 1 tab PO Q12H 09/15/18 09/18/18 History [Zyrtec-D] cholecalciferol (vitamin D3) 2,000 unit PO DAILY 09/15/18 09/18/18 History [Vitamin D3] duloxetine 30 mg PO DAILY 09/15/18 09/18/18 History duloxetine 60 mg PO DAILY 09/15/18 09/18/18 History epinephrine [EpiPen] 0.3 mg IM Q3H PRN 09/15/18 09/18/18 History fluticasone [Flonase Allergy 2 spray INTRANASAL DAILY 09/15/18 09/18/18 History Relief] hydroxychloroquine 200 mg PO Q12H 09/15/18 09/18/18 History infliximab 1 dose pk IV Q8WK 09/15/18 09/18/18 History levothyroxine 100 mcg PO DAILY 09/15/18 09/18/18 History liothyronine 5 mcg PO DAILY 09/15/18 09/18/18 History lisinopril 20 mg PO DAILY 09/15/18 09/18/18 History mercaptopurine 75 mg PO DAILY 09/15/18 09/18/18 History montelukast 10 mg PO PM 09/15/18 09/18/18 History pantoprazole 40 mg PO DAILY 09/15/18 09/18/18 History ranitidine HCl 300 mg PO Q12H 09/15/18 09/18/18 History Allergies Allergy/AdvReac Type Severity Reaction Status Date / Time codeine Allergy Severe ANAPHYLAXIS Verified 09/18/18 01:31 egg Allergy Severe ANAPHYLAXIS Verified 09/18/18 01:31 peanut Allergy Severe ANAPHYLAXIS Verified 09/18/18 01:31 shellfish derived Allergy Severe ANAPHYLAXIS Verified 09/18/18 01:31 Beef Containing Products Allergy Unknown Verified 09/18/18 01:31 tree nut Allergy Anaphylaxis Verified 09/18/18 01:31 CATS,DOGS,GRASS,POLLEN,MOLD,TREES,DUST,MITES Allergy Unknown Sneezing Uncoded 01:31 raw tomato, some fresh Allergy sneezing/wa Uncoded 09/18/18 01:31 fruits/vegg teryeyes Past Med/Surg History Medical History Anxiety Connective tissue disease Crohns disease GERD (gastroesophageal reflux disease) Hypertension Hypothyroid Surgical History S/P wisdom tooth extraction Family History Other Family history non-contributory Social History Current Living Situation: Significant Other Feels Safe at Home: Yes Smoking Status: Former smoker Hx Alcohol Use: No Hx Substance Use: No Beliefs That Will Affect Care: None Preferred Language: American Review of Systems All systems reviewed & are unremarkable except as noted in HPI & below Physical Exam Vital Signs Vital Signs - 24 hr 09/18/18 00:14 09/18/18 02:38 09/18/18 04:09 Temperature 36.4 C L Temperature Source Oral Sepsis Recent Fever Within 48 Hours No Sepsis New/Unexplained Change in Mental Status No Sepsis Action Taken by Nursing No Action Required Pulse Rate 89 Pulse Rate [Right] 80 88 Pulse Rhythm [Right] Regular Pulse Strength [Right] Normal Respiratory Rate 16 18 18 Respiratory Effort / Characteristics Non-Labored Spontaneous Non-Labored Spontaneous Respiratory Depth Normal Normal Respiratory Pattern Regular Blood Pressure 134/92 Blood Pressure [Left Arm] 132/88 126/89 Blood Pressure Mean 106 Blood Pressure Mean [Left Arm] 102 101 Blood Pressure Position [Left Arm] Lying Pulse Oximetry 96 97 96 Oxygen Delivery Method Room Air Room Air Room Air VITALS: Vitals are noted on the nurse's note and reviewed by myself. Vital signs stable. GENERAL: White female, in no acute distress, nondiaphoretic, well-developed well -nourished. SKIN: The skin was without rashes, erythema, edema, or bruising. There is no tenting of the skin. Capillary reflex less than 2 seconds. HEAD: Normocephalic atraumatic. EARS: External auditory canals clear, tympanic membranes pearly womack without erythema or effusion bilaterally. EYES: Pupils equal round and reactive to light and accommodation. Conjunctivae without injection, sclerae without icterus. Extraocular movements intact. NOSE: Patent, turbinates without inflammation or discharge. MOUTH: Mucous membranes moist. Pharynx without erythema or exudate. Uvula midline. Airway patent. Tongue does not deviate. NECK: Supple without nuchal rigidity. No lymphadenopathy. No thyromegaly. Cervical spine is nontender. No JVD. HEART: Regular rate and rhythm LUNGS: Clear to auscultation bilaterally without wheezes, rales or rhonchi. No retractions or accessory muscle use. ABDOMEN: Positive bowel sounds x 4. Normal tympanic percussion. Soft, tender to palpation epigastric region, without masses or organomegaly. No guarding or rebound tenderness. No CVA tenderness MUSCULOSKELETAL: No muscle atrophy, erythema, or edema noted. NEURO: Patient was alert and oriented to person place and time. Normal sensation to light and sharp touch. No focal neurological deficits. Course Administered Medications Discontinued Medications Dicyclomine HCl (Bentyl) 20 mg IM NOW ONE Stop: 09/18/18 00:26 Last Admin: 09/18/18 01:16 Dose: 20 mg Diphenhydramine HCl (Benadryl) 25 mg IV NOW STA Stop: 09/18/18 00:26 Last Admin: 09/18/18 01:16 Dose: 25 mg Sodium Chloride (Nss 1000ml) 1,000 mls @ 999 mls/hr IV .Q1H1M FRANNY Stop: 09/18/18 01:30 Last Infusion: 09/18/18 02:42 Dose: 0 mls/hr Admin: 09/18/18 01:18 Dose: 999 mls/hr Piperacillin Sod/Tazobactam Sod (Zosyn) 4.5 gm in 120 mls @ 240 mls/hr IV NOW ONE Stop: 09/18/18 03:52 Last Infusion: 09/18/18 04:09 Dose: 0 mls/hr Admin: 09/18/18 03:31 Dose: 240 mls/hr Metoclopramide HCl (Reglan) 10 mg IV NOW STA Stop: 09/18/18 00:26 Last Admin: 09/18/18 01:16 Dose: 10 mg Medical Decision Making Medical Records Attestation: I reviewed the patient's medical records. Home Medications Current Medication List: was personally reviewed by me Laboratory Data Attestation: I reviewed the patient's lab results. Result diagrams: 09/18/18 01:00 09/18/18 01:00 Lab Results 09/18/18 09/18/18 09/18/18 Range/Units 01:00 01:00 01:00 WBC 8.18 (4.8-10.8) K/uL RBC 4.24 (4.2-5.4) M/uL Hgb 12.6 (12.0-16.0) g/dL Hct 36.2 L (37-47) % MCV 85.4 (80-100) fL MCH 29.7 (25-34) pg MCHC 34.8 (32-36) g/dL RDW Std Deviation 46.2 (36.4-46.3) fL RDW Coeff of Shaji 14.8 H (11.5-14.5) % Plt Count 232 (130-400) K/uL MPV 11.8 H (7.4-10.4) fL Immature Gran % (Auto) 0.5 % Neut % (Auto) 75.0 % Lymph % (Auto) 14.4 % [place] % (Auto) 8.9 % Eos % (Auto) 1.0 % Baso % (Auto) 0.2 % Immature Gran # (Auto) 0.04 H (0.00-0.02) K/uL Neut # (Auto) 6.13 (1.4-6.5) K/uL Lymph # (Auto) 1.18 L (1.2-3.4) K/uL [place] # (Auto) 0.73 H (0.11-0.59) K/uL Eos # (Auto) 0.08 (0-0.5) K/uL Baso # (Auto) 0.02 (0-0.2) K/uL PT 10.6 (9.0-12.0) Seconds INR 1.1 (0.9-1.1) APTT 22.4 (21.0-31.0) Seconds PTT Ratio 0.9 Sodium 135 L (136-145) mmol/L Potassium 3.6 (3.5-5.1) mmol/L Chloride 107 (98-107) mmol/L Carbon Dioxide 25 (21-32) mmol/L Anion Gap 3.0 (3-11) BUN 7 (7-18) mg/dl Creatinine 0.84 (0.6-1.2) mg/dl Est Cr Clr Drug Dosing 85.6 ml/min Est GFR ( Amer) 102.2 Est GFR (Non-Af Amer) 88.2 BUN/Creatinine Ratio 8.7 L (10-20) Glucose 108 H (70-99) mg/dl Calcium 8.8 (8.5-10.1) mg/dl Total Bilirubin 2.2 H D (0.2-1) mg/dl AST 278 H (15-37) U/L ALT 430 H (12-78) U/L Alkaline Phosphatase 394 H D (45-117) U/L Total Protein 7.3 (6.4-8.2) gm/dl Albumin 3.5 (3.4-5.0) gm/dl Globulin 3.8 (2.5-4.0) gm/dl Albumin/Globulin Ratio 0.9 (0.9-2) Lipase 187 (73-393) U/L Urine Color Urine Appearance (Clear) Urine pH (4.5-7.5) Ur Specific [place] (1.000-1.030) Urine Protein (Negative) Urine Glucose (UA) (Negative) Urine Ketones (Negative) Urine Blood (Negative) Urine Nitrite (Negative) Urine Bilirubin (Negative) Urine Urobilinogen (Negative) Ur Leukocyte Esterase (Negative) POC Ur Test (NEG) 09/18/18 09/18/18 Range/Units 02:30 02:30 WBC (4.8-10.8) K/uL RBC (4.2-5.4) M/uL Hgb (12.0-16.0) g/dL Hct (37-47) % MCV (80-100) fL MCH (25-34) pg MCHC (32-36) g/dL RDW Std Deviation (36.4-46.3) fL RDW Coeff of Shaji (11.5-14.5) % Plt Count (130-400) K/uL MPV (7.4-10.4) fL Immature Gran % (Auto) % Neut % (Auto) % Lymph % (Auto) % [place] % (Auto) % Eos % (Auto) % Baso % (Auto) % Immature Gran # (Auto) (0.00-0.02) K/uL Neut # (Auto) (1.4-6.5) K/uL Lymph # (Auto) (1.2-3.4) K/uL [place] # (Auto) (0.11-0.59) K/uL Eos # (Auto) (0-0.5) K/uL Baso # (Auto) (0-0.2) K/uL PT (9.0-12.0) Seconds INR (0.9-1.1) APTT (21.0-31.0) Seconds PTT Ratio Sodium (136-145) mmol/L Potassium (3.5-5.1) mmol/L Chloride (98-107) mmol/L Carbon Dioxide (21-32) mmol/L Anion Gap (3-11) BUN (7-18) mg/dl Creatinine (0.6-1.2) mg/dl Est Cr Clr Drug Dosing ml/min Est GFR ( Amer) Est GFR (Non-Af Amer) BUN/Creatinine Ratio (10-20) Glucose (70-99) mg/dl Calcium (8.5-10.1) mg/dl Total Bilirubin (0.2-1) mg/dl AST (15-37) U/L ALT (12-78) U/L Alkaline Phosphatase (45-117) U/L Total Protein (6.4-8.2) gm/dl Albumin (3.4-5.0) gm/dl Globulin (2.5-4.0) gm/dl Albumin/Globulin Ratio (0.9-2) Lipase (73-393) U/L Urine Color Yellow Urine Appearance Clear (Clear) Urine pH 5.5 (4.5-7.5) Ur Specific [place] 1.006 (1.000-1.030) Urine Protein Negative (Negative) Urine Glucose (UA) Negative (Negative) Urine Ketones Negative (Negative) Urine Blood Negative (Negative) Urine Nitrite Negative (Negative) Urine Bilirubin Negative (Negative) Urine Urobilinogen Negative (Negative) Ur Leukocyte Esterase Negative (Negative) POC Ur Test NEG (NEG) MDM Narrative Prior records/ancillary studies reviewed. Triage Nursing notes reviewed. Additional history obtained from family. The patient's history was concerning for abdominal pain. Differential diagnosis: Etiologies such as appendicitis, diverticulitis, PUD, biliary pathology, UTI, pancreatitis, obstruction, mesenteric ischemia, aortic pathology, infections, inflammatory bowel disease, renal colic, as well as others were entertained. Physical examination findings: As above. ER treatment provided: Bentyl, Zofran, IV fluids On reassessment the patient felt better. Diagnostics interpreted by me: The labs revealed elevated LFTs T bili, normal coags. No leukocytosis Imaging studies: Acute abdominal series with no free air, bowel obstruction or pneumothorax per my interpretation MR MRCP CLINICAL HISTORY: Persistent abdominal pain. Abnormal LFTs. Borderline common bile duct dilatation. COMPARISON STUDY: Biliary ultrasound dated 09/15/2018, CT scan of the abdomen and pelvis dated 09/15/2018 FINDINGS: There is trace pericholecystic fluid. There is no gallbladder dilatation. No gallbladder calculi are visualized. The common bile duct measures 5 mm. There are no filling defects to indicate calculi. There is no intrahepatic biliary ductal dilatation. An equivocal mild narrowing of a left lobe intrahepatic duct on the MIP images is likely artifactual. There is no pancreatic ductal dilatation. There are no peripancreatic inflammatory changes. IMPRESSION: 1. No pancreatic or biliary ductal dilatation 2. No calculi identified 3. Trace pericholecystic fluid. No evidence for gallbladder dilatation. US RUQ: Echogenic liver can be seen with hepatic steatosis. Liver is also somewhat small and nodular suggesting the possibility of cirrhosis. Question presence of gallbladder sludge. No gallbladder wall thickening. No shadowing stones. Patient was given pain medications; therefore assistant center manager was not able to assess for the presence of sonographic Bautista's sign. Normal common bile duct measures 6 mm. No hydronephrosis involving the right kidney. Radiologist: Pavel Llamas M.D. Electronically signed by: Misael Kruger M.D. Consultation: A consultation was placed with the hospitalist, Dr. Delarosa. The case was discussed and diagnostics were reviewed. The patient was evaluated in the ER for further treatment. Exam and history seem consistent with elevated LFTs with right upper quadrant pain concerning for biliary colic with possible obstructive process. Patient's MRCP was reviewed from the other day. Ultrasound was repeated and shows sludge. Patient started antibiotics. Medicine was consulted. By the evaluation outlined above emergent etiologies such as appendicitis, diverticulitis, PUD, UTI, pancreatitis, obstruction, mesenteric ischemia, aortic pathology, inflammatory bowel disease, renal colic, as well as others were deemed relatively unlikely. The pt informed about the findings as listed above. All questions were answered and pleased with the treatment. Case reviewed with my attending The chart was completed utilizing [employer] Speech voice recognition software. Grammatical errors, random word insertions, pronoun errors, and incomplete sentences are an occassional consequence of this system due to software limitations, ambient noise, and hardware issues. Any formal questions or concerns about the content, text, or information contained within the body of this dictation should be directly addressed to the physician insurance claims assistant for clarification. Impression & Plan Right upper quadrant abdominal pain, Elevated liver enzymes Discharge Plan Visit Data Chief Complaint: Abdominal Pain Stated Complaint: ABDOMINAL PAIN ED Provider: Tiana Anderson ED Midlevel Provider: Jennifer Godwin Discharge Problem: Right upper quadrant abdominal pain, Elevated liver enzymes Patient Disposition: Being Evaluated by Hospitalist Condition: Fair Forms Stand Alone Forms: Call Back Authorization, My [facility] Prescriptions Prescriptions: No Action amlodipine [Norvasc] 10 mg Tablet 10 mg PO DAILY RF: 0 cetirizine-pseudoephedrine [Zyrtec-D] 5-120 mg Tablet Extended Release 12 Hr 1 tab PO Q12H RF: 0 cholecalciferol (vitamin D3) [Vitamin D3] 2,000 unit Tablet 2,000 unit PO DAILY RF: 0 duloxetine 30 mg Capsule,Delayed Release(Dr/Ec) 30 mg PO DAILY RF: 0 duloxetine 60 mg Capsule,Delayed Release(Dr/Ec) 60 mg PO DAILY RF: 0 Alma Rosa 0.35 mg PO DAILY RF: 0 epinephrine [EpiPen] 0.3 mg/0.3 mL Auto-Injector 0.3 mg IM Q3H PRN (Reason: Allergy Symptoms) RF: 0 fluticasone [Flonase Allergy Relief] 50 mcg/actuation [place],Suspension 2 spray INTRANASAL DAILY RF: 0 hydroxychloroquine 200 mg Tablet 200 mg PO Q12H RF: 0 infliximab 100 mg Recon Soln 1 dose pk IV Q8WK RF: 0 levothyroxine 100 mcg Tablet 100 mcg PO DAILY RF: 0 liothyronine 5 mcg Tablet 5 mcg PO DAILY RF: 0 lisinopril 20 mg Tablet 20 mg PO DAILY RF: 0 mercaptopurine 50 mg Tablet 75 mg PO DAILY RF: 0 montelukast 10 mg Tablet 10 mg PO PM RF: 0 pantoprazole 40 mg Tablet,Delayed Release (Dr/Ec) 40 mg PO DAILY RF: 0 ranitidine HCl 300 mg Tablet 300 mg PO Q12H RF: 0 Referrals Referrals: Ferny Solorzano MD [Primary Care Provider] -
[2018-09-18 02:50] LABS: Appearance Urine Clear (Clear); Bilirubin Urine Negative (Negative); Color Urine Yellow; Glucose Urine UA Negative (Negative); Ketones Urine Negative (Negative); Leukocyte Esterase Urine Negative (Negative); Nitrite Urine Negative (Negative); Protein Urine Negative (Negative); Specific Gravity Urine 1.006 (1.000-1.030); Urobilinogen Urine Negative (Negative); pH Urine 5.5 (4.5-7.5)
[2018-09-18] MEDS ORDERED: PIPERACILLIN/TAZOBACTAM 4.5 GM/120 ML BAG IV ONE (03:23)
[2018-09-18] MEDS ORDERED: PIPERACILL/TAZOBAC CONSULT ACTIVE PRN ×2 (03:23→05:51)
[2018-09-18] MEDS ORDERED: PIPERACILLIN/TAZOBACTAM 3.375 GM in DEXTROSE 5% 100 ML IV SCH (05:51)
[2018-09-18] MEDS ORDERED: LORazepam 1 MG/2 ML VIAL IV PRN (05:51)
[2018-09-18] MEDS ORDERED: HydrALAZINE HCL 20 MG/ML VIAL IV PRN (05:51)
[2018-09-18] MEDS ORDERED: PROCHLORPERAZINE 10 MG in SYRINGE 8 ML IV PRN (05:51)
[2018-09-18] MEDS ORDERED: MoRPHine SULFATE 2 MG/ML CARP IV PRN (05:51)
[2018-09-18] MEDS ORDERED: ONDANSETRON INJ 2 MG/ML 2 ML VIAL IV PRN ×2 (05:51→10:47)
[2018-09-18] MEDS ORDERED: NSS + 20MEQ KCL 20 MEQ/1,000 ML BAG IV SCH (05:51)
--- NOTE | 2018-09-18 06:26 | History & Physical Report ---
Date of Service September 18, 2018 Assessment & Plan (1) Elevated liver enzymes: Elevated liver enzymes/right upper quadrant abdominal pain-- Liver enzymes have worsened since last admission, and right upper quadrant abdominal pain has recurred. The previous admission, she had CTA of chest, abdomen and pelvis; MRCP, and gallbladder ultrasound. NPO. NSS + KCl 20 mEq 100 mils per hour. Zosyn 3.375 mg IV every 8 hours. Zofran 4 mg IV every 6 hours as needed. Pantoprazole 40 mg IV daily. Morphine sulfate 2 mg IV every 3 hours as needed severe pain. Order HIDA scan NM with medication. Consult gastroenterology Dr. Villagomez. Consult general surgery Dr. Bowser. Present on Admission?: Yes (2) Right upper quadrant abdominal pain: See above. Present on Admission?: Yes (3) Mixed connective tissue disease: For now hold immunosuppressive agents until confirmed whether or not surgery will be performed Present on Admission?: Yes (4) Crohns disease: For now hold immunosuppressive agents until determined of surgery will be performed. Present on Admission?: Yes (5) GERD (gastroesophageal reflux disease): Pantoprazole 40 mg IV daily Present on Admission?: Yes (6) Hypertension: Hold lisinopril and amlodipine. Hydralazine 10 mg IV every 4 hours as needed systolic blood pressure above 160. Present on Admission?: Yes (7) Anxiety: Hold oral medications. Have available lorazepam 1 mg IV every 4 hours as needed. Present on Admission?: Yes (8) Hypothyroid: For now hold levothyroxine and liothyronine in the event of upcoming surgery. If no surgery today, would restart levothyroxine 100 mcg daily and liothyronine 5 mcg daily Present on Admission?: Yes History of Present Illness Chief Complaint: The patient presents to the emergency department with a recurrence of abdominal pain and nausea following eating a meal of macaroni and cheese. Primary Care Provider: Ferny Solorzano MD The patient is a 37-year-old female most recently admitted to [facility] from a 09/15 through 09/16 with abnormal liver enzymes, that had been improving prior to discharge, and negative CTA of the chest, abdomen and pelvis; negative MRCP and gallbladder ultrasound for acute cholecystitis. Patient had a follow-up appointment with Dr. Bowser from surgery for next week. However, patient has noted above had a heavy meal of macaroni and cheese , developed severe abdominal discomfort, presented to the emergency department for assessment, and had significantly elevated liver enzymes. She was then referred for evaluation for admission. Allergies Allergy/AdvReac Type Severity Reaction Status Date / Time codeine Allergy Severe ANAPHYLAXIS Verified 09/18/18 01:31 egg Allergy Severe ANAPHYLAXIS Verified 09/18/18 01:31 Fish Containing Products Allergy Severe Anaphylaxis Verified 09/18/18 05:56 peanut Allergy Severe ANAPHYLAXIS Verified 09/18/18 01:31 shellfish derived Allergy Severe ANAPHYLAXIS Verified 09/18/18 01:31 Beef Containing Products Allergy Unknown Verified 09/18/18 01:31 tree nut Allergy Anaphylaxis Verified 09/18/18 01:31 CATS,DOGS,GRASS,POLLEN,MOLD,TREES,DUST,MITES Allergy Unknown Sneezing Uncoded 01:31 raw tomato, some fresh Allergy sneezing/wa Uncoded 09/18/18 01:31 fruits/vegg teryeyes Home Medications Home Medications Medication Instructions Recorded Confirmed Type Lama Rosa 0.35 mg PO DAILY 09/15/18 09/18/18 History amlodipine [Norvasc] 10 mg PO DAILY 09/15/18 09/18/18 History cetirizine-pseudoephedrine 1 tab PO Q12H 09/15/18 09/18/18 History [Zyrtec-D] cholecalciferol (vitamin D3) 2,000 unit PO DAILY 09/15/18 09/18/18 History [Vitamin D3] duloxetine 30 mg PO DAILY 09/15/18 09/18/18 History duloxetine 60 mg PO DAILY 09/15/18 09/18/18 History epinephrine [EpiPen] 0.3 mg IM Q3H PRN 09/15/18 09/18/18 History fluticasone [Flonase Allergy 2 spray INTRANASAL DAILY 09/15/18 09/18/18 History Relief] hydroxychloroquine 200 mg PO Q12H 09/15/18 09/18/18 History infliximab 1 dose pk IV Q8WK 09/15/18 09/18/18 History levothyroxine 100 mcg PO DAILY 09/15/18 09/18/18 History liothyronine 5 mcg PO DAILY 09/15/18 09/18/18 History lisinopril 20 mg PO DAILY 09/15/18 09/18/18 History mercaptopurine 75 mg PO DAILY 09/15/18 09/18/18 History montelukast 10 mg PO PM 09/15/18 09/18/18 History pantoprazole 40 mg PO DAILY 09/15/18 09/18/18 History ranitidine HCl 300 mg PO Q12H 09/15/18 09/18/18 History Past Med/Surg History Medical History Anxiety Connective tissue disease Crohns disease GERD (gastroesophageal reflux disease) Hypertension Hypothyroid Surgical History S/P wisdom tooth extraction Family History Other Family history non-contributory Social History Current Living Situation: Significant Other Feels Safe at Home: Yes Smoking Status: Former smoker Hx Alcohol Use: No Hx Substance Use: No Beliefs That Will Affect Care: None Preferred Language: Lebanese Review of Systems The patient denies chest pain, palpitations, shortness of breath, dyspnea on exertion, cough, lower extremity swelling, sore throat, fevers, chills, sweats, weight change, diarrhea , constipation, blood in urine or stool, dysuria, urinary frequency or urgency, lightheadedness , dizziness, headache, memory loss, loss of consciousness, rash, abnormal bruising or bleeding, imbalance, focal or generalized weakness, numbness or tingling in arms or legs, generalized arthralgias or myalgias, back or neck pain, or night sweats. The review of systems is otherwise negative other than for that already noted above, and at least 10 systems have been reviewed. Physical Exam 2 Vital Signs (Past 24 Hours): Last Vital Signs Temp 36.4 C L 09/18/18 00:14 Pulse 78 09/18/18 05:27 Resp 18 09/18/18 05:27 BP 123/87 09/18/18 05:27 Pulse Ox 96 09/18/18 05:27 Physical Exam: The patient is awake, alert and oriented 3, well developed and well nourished, normocephalic and atraumatic, lying in bed and in no acute distress. HEENT--PERRL, EOMI, mucous membranes and oropharynx dry. Neck--supple. No JVD. No bruits. Thyroid normal, trachea midline, no adenopathy. Heart--normal S1 and S2. No murmurs, rubs or gallops. Lungs--clear bilaterally, no respiratory distress, no accessory muscle use. Abdomen--normal bowel sounds and soft. Nontender. Nondistended. Post pain medications. Extremities--no cyanosis or clubbing. No edema. There are good distal pulses b/ l. Dermatologic--normal skin turgor, normal color, no abnormal lymph nodes, no rash. Neurologic--cranial nerves II through XII grossly intact. Rheumatologic--normal range of motion. Psychiatric--normal affect. Results & Data Laboratory Results Laboratory Results WBC 8.18 K/uL (4.8-10.8) 09/18/18 01:00 RBC 4.24 M/uL (4.2-5.4) 09/18/18 01:00 Hgb 12.6 g/dL (12.0-16.0) 09/18/18 01:00 Hct 36.2 % (37-47) L 09/18/18 01:00 MCV 85.4 fL (80-100) 09/18/18 01:00 MCH 29.7 pg (25-34) 09/18/18 01:00 MCHC 34.8 g/dL (32-36) 09/18/18 01:00 RDW Std Deviation 46.2 fL (36.4-46.3) 09/18/18 01:00 RDW Coeff of Shaji 14.8 % (11.5-14.5) H 09/18/18 01:00 Plt Count 232 K/uL (130-400) 09/18/18 01:00 MPV 11.8 fL (7.4-10.4) H 09/18/18 01:00 Immature Gran % (Auto) 0.5 % 09/18/18 01:00 Neut % (Auto) 75.0 % 09/18/18 01:00 Lymph % (Auto) 14.4 % 09/18/18 01:00 [place] % (Auto) 8.9 % 09/18/18 01:00 Eos % (Auto) 1.0 % 09/18/18 01:00 Baso % (Auto) 0.2 % 09/18/18 01:00 Immature Gran # (Auto) 0.04 K/uL (0.00-0.02) H 09/18/18 01:00 Neut # (Auto) 6.13 K/uL (1.4-6.5) 09/18/18 01:00 Lymph # (Auto) 1.18 K/uL (1.2-3.4) L 09/18/18 01:00 [place] # (Auto) 0.73 K/uL (0.11-0.59) H 09/18/18 01:00 Eos # (Auto) 0.08 K/uL (0-0.5) 09/18/18 01:00 Baso # (Auto) 0.02 K/uL (0-0.2) 09/18/18 01:00 PT 10.6 Seconds (9.0-12.0) 09/18/18 01:00 INR 1.1 (0.9-1.1) 09/18/18 01:00 APTT 22.4 Seconds (21.0-31.0) 09/18/18 01:00 PTT Ratio 0.9 09/18/18 01:00 Sodium 135 mmol/L (136-145) L 09/18/18 01:00 Potassium 3.6 mmol/L (3.5-5.1) 09/18/18 01:00 Chloride 107 mmol/L (98-107) 09/18/18 01:00 Carbon Dioxide 25 mmol/L (21-32) 09/18/18 01:00 Anion Gap 3.0 (3-11) 09/18/18 01:00 BUN 7 mg/dl (7-18) 09/18/18 01:00 Creatinine 0.84 mg/dl (0.6-1.2) 09/18/18 01:00 Est Cr Clr Drug Dosing 85.6 ml/min 09/18/18 01:00 Est GFR ( Amer) 102.2 09/18/18 01:00 Est GFR (Non-Af Amer) 88.2 09/18/18 01:00 BUN/Creatinine Ratio 8.7 (10-20) L 09/18/18 01:00 Glucose 108 mg/dl (70-99) H 09/18/18 01:00 Calcium 8.8 mg/dl (8.5-10.1) 09/18/18 01:00 Total Bilirubin 2.2 mg/dl (0.2-1) H D 09/18/18 01:00 AST 278 U/L (15-37) H 09/18/18 01:00 ALT 430 U/L (12-78) H 09/18/18 01:00 Alkaline Phosphatase 394 U/L (45-117) H D 09/18/18 01:00 Total Protein 7.3 gm/dl (6.4-8.2) 09/18/18 01:00 Albumin 3.5 gm/dl (3.4-5.0) 09/18/18 01:00 Globulin 3.8 gm/dl (2.5-4.0) 09/18/18 01:00 Albumin/Globulin Ratio 0.9 (0.9-2) 09/18/18 01:00 Lipase 187 U/L (73-393) 09/18/18 01:00 Urine Color Yellow 09/18/18 02:30 Urine Appearance Clear (Clear) 09/18/18 02:30 Urine pH 5.5 (4.5-7.5) 09/18/18 02:30 Ur Specific Melville 1.006 (1.000-1.030) 09/18/18 02:30 Urine Protein Negative (Negative) 09/18/18 02:30 Urine Glucose (UA) Negative (Negative) 09/18/18 02:30 Urine Ketones Negative (Negative) 09/18/18 02:30 Urine Blood Negative (Negative) 09/18/18 02:30 Urine Nitrite Negative (Negative) 09/18/18 02:30 Urine Bilirubin Negative (Negative) 09/18/18 02:30 Urine Urobilinogen Negative (Negative) 09/18/18 02:30 Ur Leukocyte Esterase Negative (Negative) 09/18/18 02:30 POC Ur Test NEG (NEG) 09/18/18 02:30 Diagnostic Findings 09/15 MRCP 09/15 gallbladder ultrasound 09/15 CTA abdomen and pelvis 09/15 CTA of chest Code Status & VTE Plan Code Status Full code VTE Prophylaxis Plan VTE Prophylaxis will be ordered: Yes _ (1) GERD (gastroesophageal reflux disease) Esophagitis presence: esophagitis presence not specified Qualified Code(s): K21.9 - Gastro-esophageal reflux disease without esophagitis (2) Hypertension Hypertension type: essential hypertension Qualified Code(s): I10 - Essential (primary) hypertension
--- NOTE | 2018-09-18 06:37 | XRay Report ---
XR abdomen 2V w PA chest HISTORY: 37 years-old Female pain acute atypical chest pain COMPARISON: CTA of the chest 09/15/2018 TECHNIQUE: PA view of the chest with erect and supine views of the abdomen FINDINGS: Cardiomediastinal and hilar silhouettes are within normal limits. No pneumothorax, pleural effusion, focal airspace consolidation or overt pulmonary edema. Bones of the chest appear grossly intact. No pneumatosis or pneumoperitoneum. Bowel gas pattern is nonobstructive. No urolith. No acute fractur e. IMPRESSION: Unremarkable acute abdominal series radiographs. The above report was generated using voice recognition software. It may contain grammatical, syntax o r spelling errors. Electronically signed by: Nicola Mathur M.D. 09/18/2018 6:36 AM
--- NOTE | 2018-09-18 07:08 | Ultrasound Report ---
ULTRASOUND RIGHT UPPER QUADRANT ABDOMEN CLINICAL HISTORY: Right upper quadrant abdominal pain. COMPARISON STUDY: Abdominal CT and abdominal ultrasound dated 09/15/2018. TECHNIQUE: Real-time, grayscale, and color flow sonography of the right upper quadrant of the abdomen was performed. Images are reviewed in the transverse and longitudinal planes. FINDINGS: Liver: The liver is normal in size and heterogeneous and echotexture. There is no intrahepatic biliar y ductal dilatation. The main portal vein is patent. Gallbladder: The gallbladder is normal in appearance. No gallstones are identified. There is no gallb ladder wall thickening or pericholecystic fluid. A sonographic Bautista's sign could not be assessed as the patient received analgesia. The common bile duct measures up to 0.6 cm in diameter. Pancreas: Visualized portions of the pancreatic head are normal in appearance. The majority of the pa ncreas was not visualized. Right kidney: Survey images of the right kidney demonstrate normal size and echotexture. There is no hydronephrosis. Ascites: None. IMPRESSION: No acute sonographic abnormality is identified in the right upper quadrant. No gallsto torrie are seen. Electronically signed by: Mik Blanton M.D. 09/18/2018 7:07 AM
--- NOTE | 2018-09-18 07:48 | Surgery Consultation ---
Date of Consultation September 18, 2018 abd pain and elevated lft Assessment & Plan (1) Elevated liver enzymes: clinically and by history(family) suspect gallbladder the problem (almost classical) rec lap manuelito, c'gram r and c explained to pt and SO and agree to proceed they are also aware that all her symp may not be resolved with gallbladder surgery discussed with DR Rm Present on Admission?: Yes History of Present Illness Attending Physician: Florian Cabrera MD 2 admission within one week for abd pain first one triggered by pork meal with elevated lft that normalized rather quickly than rec after eating oatmeal yesterday and back to ER with elevated lft agian and pain band like subcostal joe strong family history of gallbladder problem multiple members had cholecystectomy she and her sister escaped it thus far Allergies Allergy/AdvReac Type Severity Reaction Status Date / Time codeine Allergy Severe ANAPHYLAXIS Verified 09/18/18 01:31 egg Allergy Severe ANAPHYLAXIS Verified 09/18/18 01:31 Fish Containing Products Allergy Severe Anaphylaxis Verified 09/18/18 05:56 peanut Allergy Severe ANAPHYLAXIS Verified 09/18/18 01:31 shellfish derived Allergy Severe ANAPHYLAXIS Verified 09/18/18 01:31 Beef Containing Products Allergy Unknown Verified 09/18/18 01:31 tree nut Allergy Anaphylaxis Verified 09/18/18 01:31 CATS,DOGS,GRASS,POLLEN,MOLD,TREES,DUST,MITES Allergy Unknown Sneezing Uncoded 01:31 raw tomato, some fresh Allergy sneezing/wa Uncoded 09/18/18 01:31 fruits/vegg teryeyes Home Medications Home Medications Medication Instructions Recorded Confirmed Type Alma Rosa 0.35 mg PO DAILY 09/15/18 09/18/18 History amlodipine [Norvasc] 10 mg PO DAILY 09/15/18 09/18/18 History cetirizine-pseudoephedrine 1 tab PO Q12H 09/15/18 09/18/18 History [Zyrtec-D] cholecalciferol (vitamin D3) 2,000 unit PO DAILY 09/15/18 09/18/18 History [Vitamin D3] duloxetine 30 mg PO DAILY 09/15/18 09/18/18 History duloxetine 60 mg PO DAILY 09/15/18 09/18/18 History epinephrine [EpiPen] 0.3 mg IM Q3H PRN 09/15/18 09/18/18 History fluticasone [Flonase Allergy 2 spray INTRANASAL DAILY 09/15/18 09/18/18 History Relief] hydroxychloroquine 200 mg PO Q12H 09/15/18 09/18/18 History infliximab 1 dose pk IV Q8WK 09/15/18 09/18/18 History levothyroxine 100 mcg PO DAILY 09/15/18 09/18/18 History liothyronine 5 mcg PO DAILY 09/15/18 09/18/18 History lisinopril 20 mg PO DAILY 09/15/18 09/18/18 History mercaptopurine 75 mg PO DAILY 09/15/18 09/18/18 History montelukast 10 mg PO PM 09/15/18 09/18/18 History pantoprazole 40 mg PO DAILY 09/15/18 09/18/18 History ranitidine HCl 300 mg PO Q12H 09/15/18 09/18/18 History Patient History Medical History Anxiety Connective tissue disease Crohns disease GERD (gastroesophageal reflux disease) Hypertension Hypothyroid Surgical History S/P wisdom tooth extraction Family History Other Family history non-contributory Social History Current Living Situation: Significant Other Other Information That Helps Us Care for You: No Feels Safe at Home: Yes Safety Concerns: Feels Safe At This Time Smoking Status: Former smoker Hx Alcohol Use: No Hx Substance Use: No Beliefs That Will Affect Care: None Preferred Language: Bulgarian Communication Ability: Effective Solderer Required: No Review of Systems extensive med history reviewed Physical Exam 2 Vital Signs (Past 24 Hours): Last Vital Signs Temp 36.6 C 09/18/18 07:30 Pulse 74 09/18/18 07:30 Resp 17 09/18/18 07:30 BP 124/87 09/18/18 07:30 Pulse Ox 98 09/18/18 07:30 Physical Exam: laert in no distress significant other at bedside Constitutional: WD/WN, vitals as above Eyes: sclera non icteric Gastrointestinal (Abdomen): soft not distenden no loc tenderness deep palpation ruq some guarding Results & Data Laboratory Results noted along with 2 reports of ultrasound of gallbladder (one possible sludge) and MRCP
[2018-09-18] MEDS: PIPERACILLIN/TAZOBACTAM 4.5 GM in DEXTROSE 5% 100 ML IV SCH ×2 (08:18→16:00)
--- NOTE | 2018-09-18 09:30 | Gastrointestinal Consultation ---
Date of Consultation September 18, 2018 Assessment & Plan (1) Right upper quadrant abdominal pain: -Plan per general surgery is for lap manuelito today -Pain control per primary team Present on Admission?: Yes (2) Elevated liver enzymes: T bili 2.2, Alk phos 394, ALT 430, AST 278. Hep A, B, C unremarkable. Upon review of her chart, it appears that this is the first time she has had liver enzyme elevation. -Plan for lap manuelito today -Follow LFTs post-op. If persistent elevation, consider further serologic work- up to include JACLYN, AMA, ASMA, Liver-kidney microsomal antibodies. If no improvement, further consideration would be to consider her 6MP as a potential etiology of her LFT abnormalities. (3) Crohns disease: -Continue to hold 6MP -Remicade infusion will have to be delayed due to her surgical intervention -Continued follow-up with our office Present on Admission?: Yes Supervising Physician Co-Signing Physician Notes Agree with DARIO Ricketts as above Abd: Soft, slightly tender RUQ s/p cholecystectomy Doing well at present with minimal complaints of abd pain Continue supportive care Continue to hold 6-MP History of Present Illness Attending Physician: Florian Cabrera MD History of Present Illness Patient is a 37 yo female with a PMH of hypothyroidism, anxiety, mixed connective tissue disease, GERD, hypertension, & is well known to our office for her Crohn's Disease. She presented to the hospital earlier this week for severe abdominal pain. At that time, she had an ALT of 228, AST of 259, and a T bili of 1.1. She underwent an ultrasound that indicated borderline dilatation of her common bile duct to 7 mm. She was discharged with recommendations for outpatient follow-up. Unfortunately, prior to following up, she reports her symptoms worsened after eating a fatty meal. She returned to the ER. Her LFTs upon return indicated an AST of 278 and an ALT of 430. Her Alk phos was 394. Her Total bili is now 2.2. She underwent a repeat US that indicated no gallstones. Her MRCP was unremarkable. A CT scan indicated a mild mesenteric adenitis. She has seen general surgery and is scheduled for a laparoscopic cholecystectomy today. She had unremarkable Hep A, B, & C testing. In regards to her Crohn's Disease, she will be due next week for her Remicade infusion, however this will likely need to be delayed given her surgical needs at present. She takes 6MP 75 mg daily which has been well-tolerated for over [address] Villagomez earlier this week. Her 6MP was held. She had TPMT testing performed prior to initiation of therapy. She has not previously had elevated LFTs while on this. She is comanaged by [facility] (in [place]). She sees the inflammatory bowel disease team there as well as their GI-specific psychiatrist. Her last colonoscopy indicated remission of the disease. She reported persistent symptoms, however. So recently a fecal calprotectin was obtained as well as Infliximab trough/antibody levels. All testing was unremarkable and it was presumed that patient likely has an overlap of IBS and IBD. Allergies Allergy/AdvReac Type Severity Reaction Status Date / Time codeine Allergy Severe ANAPHYLAXIS Verified 09/18/18 01:31 egg Allergy Severe ANAPHYLAXIS Verified 09/18/18 01:31 Fish Containing Products Allergy Severe Anaphylaxis Verified 09/18/18 05:56 peanut Allergy Severe ANAPHYLAXIS Verified 09/18/18 01:31 shellfish derived Allergy Severe ANAPHYLAXIS Verified 09/18/18 01:31 Beef Containing Products Allergy Unknown Verified 09/18/18 01:31 tree nut Allergy Anaphylaxis Verified 09/18/18 01:31 CATS,DOGS,GRASS,POLLEN,MOLD,TREES,DUST,MITES Allergy Unknown Sneezing Uncoded 01:31 raw tomato, some fresh Allergy sneezing/wa Uncoded 09/18/18 01:31 fruits/vegg teryeyes Home Medications Home Medications Medication Instructions Recorded Confirmed Type Alma Rosa 0.35 mg PO DAILY 09/15/18 09/18/18 History amlodipine [Norvasc] 10 mg PO DAILY 09/15/18 09/18/18 History cetirizine-pseudoephedrine 1 tab PO Q12H 09/15/18 09/18/18 History [Zyrtec-D] cholecalciferol (vitamin D3) 2,000 unit PO DAILY 09/15/18 09/18/18 History [Vitamin D3] duloxetine 30 mg PO DAILY 09/15/18 09/18/18 History duloxetine 60 mg PO DAILY 09/15/18 09/18/18 History epinephrine [EpiPen] 0.3 mg IM Q3H PRN 09/15/18 09/18/18 History fluticasone [Flonase Allergy 2 spray INTRANASAL DAILY 09/15/18 09/18/18 History Relief] hydroxychloroquine 200 mg PO Q12H 09/15/18 09/18/18 History infliximab 1 dose pk IV Q8WK 09/15/18 09/18/18 History levothyroxine 100 mcg PO DAILY 09/15/18 09/18/18 History liothyronine 5 mcg PO DAILY 09/15/18 09/18/18 History lisinopril 20 mg PO DAILY 09/15/18 09/18/18 History mercaptopurine 75 mg PO DAILY 09/15/18 09/18/18 History montelukast 10 mg PO PM 09/15/18 09/18/18 History pantoprazole 40 mg PO DAILY 09/15/18 09/18/18 History ranitidine HCl 300 mg PO Q12H 09/15/18 09/18/18 History Patient History Medical History Anxiety Connective tissue disease Crohns disease GERD (gastroesophageal reflux disease) Hypertension Hypothyroid Surgical History History of esophagogastroduodenoscopy (EGD) Hx of colonoscopy S/P wisdom tooth extraction Family History Other Family history non-contributory Social History Current Living Situation: Significant Other Other Information That Helps Us Care for You: No Feels Safe at Home: Yes Safety Concerns: Feels Safe At This Time Smoking Status: Former smoker Hx Alcohol Use: No Hx Substance Use: No Beliefs That Will Affect Care: None Communication Ability: Effective Review of Systems Constitutional: no fever and no chills no acute issues Respiratory: no cough and no dyspnea Cardiovascular: no chest pain Gastrointestinal: + abdominal pain; no change in stools, no constipation, no diarrhea/loose stools and no blood in stools Musculoskeletal: no back pain Integumentary: no rash no acute issues no acute issues Endocrine: + fatigue Hematologic / Lymphatic: no easy bleeding Physical Exam 2 Vital Signs (Past 24 Hours): Last Vital Signs Temp 36.6 C 09/18/18 07:30 Pulse 74 09/18/18 07:30 Resp 17 09/18/18 07:30 BP 124/87 09/18/18 07:30 Pulse Ox 98 09/18/18 07:30 Constitutional: WD/WN, vitals as above Eyes: PERRL, conjunctivae normal, anicteric sclerae Respiratory: normal respiratory effort, lungs clear to auscultation Cardiovascular: Rate/Rhythm: regular rate and regular rhythm Gastrointestinal (Abdomen): Inspection/Auscultation: abdomen normal to inspection and normal bowel sounds Percussion/Palpation: + abdomen tender Musculoskeletal: no cyanosis or clubbing, extremities motor strength 5/5 Skin: no rashes, warm and dry Neurologic: Speech / Cognition: normal speech Psychiatric: Orientation: alert and oriented x 3
[2018-09-18] MEDS ORDERED: MIDAZOLAM HCL 1 MG/ML 2ML VIAL ONE (10:24)
[2018-09-18] MEDS ORDERED: fentaNYL citrate 100 MCG/2 ML VIAL ONE (10:25)
--- NOTE | 2018-09-18 10:43 | Anesthesiology Consultation ---
Date of Service September 18, 2018 Assessment & Plan (1) Encounter for pre-operative examination: Chart Review Chart Review: Acceptable Risk for Surgery NPO Date Last Intake of Fluids: 09/17/18 Time Last Intake of Fluids: 21:00 Date Last Intake of Solids: 09/17/18 Time Last Intake of Solids: 21:00 History Surgery Operation Date: 09/18/18 11:55 Proposed Procedures p Laparoscopic Cholecystectomy - Tito Yoo MD, FACS Height/Weight Height: 4 ft 10 in Weight: 87.8 kg Allergies Allergy/AdvReac Type Severity Reaction Status Date / Time codeine Allergy Severe ANAPHYLAXIS Verified 09/18/18 01:31 egg Allergy Severe ANAPHYLAXIS Verified 09/18/18 01:31 Fish Containing Products Allergy Severe Anaphylaxis Verified 09/18/18 05:56 peanut Allergy Severe ANAPHYLAXIS Verified 09/18/18 01:31 shellfish derived Allergy Severe ANAPHYLAXIS Verified 09/18/18 01:31 Beef Containing Products Allergy Unknown Verified 09/18/18 01:31 tree nut Allergy Anaphylaxis Verified 09/18/18 01:31 CATS,DOGS,GRASS,POLLEN,MOLD,TREES,DUST,MITES Allergy Unknown Sneezing Uncoded 01:31 raw tomato, some fresh Allergy sneezing/wa Uncoded 09/18/18 01:31 fruits/vegg teryeyes Medications Home Medications Medication Instructions Recorded Confirmed Last Taken Alma Rosa 0.35 mg PO DAILY 09/15/18 09/18/18 Unknown amlodipine [Norvasc] 10 mg PO DAILY 09/15/18 09/18/18 Unknown cetirizine-pseudoephedrine 1 tab PO Q12H 09/15/18 09/18/18 Unknown [Zyrtec-D] cholecalciferol (vitamin D3) 2,000 unit PO DAILY 09/15/18 09/18/18 Unknown [Vitamin D3] duloxetine 30 mg PO DAILY 09/15/18 09/18/18 Unknown duloxetine 60 mg PO DAILY 09/15/18 09/18/18 Unknown epinephrine [EpiPen] 0.3 mg IM Q3H PRN 09/15/18 09/18/18 Unknown fluticasone [Flonase Allergy 2 spray INTRANASAL DAILY 09/15/18 09/18/18 Unknown Relief] hydroxychloroquine 200 mg PO Q12H 09/15/18 09/18/18 Unknown infliximab 1 dose pk IV Q8WK 09/15/18 09/18/18 Unknown levothyroxine 100 mcg PO DAILY 09/15/18 09/18/18 Unknown liothyronine 5 mcg PO DAILY 09/15/18 09/18/18 Unknown lisinopril 20 mg PO DAILY 09/15/18 09/18/18 Unknown mercaptopurine 75 mg PO DAILY 09/15/18 09/18/18 Unknown montelukast 10 mg PO PM 09/15/18 09/18/18 Unknown pantoprazole 40 mg PO DAILY 09/15/18 09/18/18 Unknown ranitidine HCl 300 mg PO Q12H 09/15/18 09/18/18 Unknown Active Medications Generic Name Dose Route Start Last Admin Trade Name Freq PRN Reason Stop Dose Admin Potassium Chloride/Sodium Chloride 20 meq in 1,000 mls @ 100 mls/hr 09/18/18 05:51 09/18/18 06:06 Normal Saline W/20 Meq Kcl IV 10/18/18 05:50 100 mls/hr .Q10H FRANNY Administration Piperacillin Sod/Tazobactam 120 mls @ 30 mls/hr 09/18/18 08:00 09/18/18 08:18 Sod 4.5 gm/ Dextrose IV 09/28/18 07:59 30 mls/hr Q8H FRANNY Administration Protocol Past Medical History Medical History Anxiety Connective tissue disease Crohns disease GERD (gastroesophageal reflux disease) Hypertension Hypothyroid Past Family History Family History Other Family history non-contributory Past Surgical History Surgical History History of esophagogastroduodenoscopy (EGD) Hx of colonoscopy S/P wisdom tooth extraction Social History Smoking Status: Former smoker Hx Alcohol Use: No Hx Substance Use: No Physical Exam Vital Signs Last Vital Signs Temp 37.5 C 09/18/18 10:38 Pulse 90 09/18/18 10:38 Resp 20 09/18/18 10:38 BP 126/86 09/18/18 10:38 Pulse Ox 96 09/18/18 10:38 Testing Laboratory Results 09/18/18 01:00 09/18/18 01:00 PT 10.6 Seconds (9.0-12.0) 09/18/18 01:00 INR 1.1 (0.9-1.1) 09/18/18 01:00 APTT 22.4 Seconds (21.0-31.0) 09/18/18 01:00 Urine Color Yellow 09/18/18 02:30 Urine Appearance Clear (Clear) 09/18/18 02:30 Urine pH 5.5 (4.5-7.5) 09/18/18 02:30 Ur Specific [place] 1.006 (1.000-1.030) 09/18/18 02:30 Urine Protein Negative (Negative) 09/18/18 02:30 Urine Glucose (UA) Negative (Negative) 09/18/18 02:30 Urine Ketones Negative (Negative) 09/18/18 02:30 Urine Nitrite Negative (Negative) 09/18/18 02:30 Ur Leukocyte Esterase Negative (Negative) 09/18/18 02:30 09/18/18 02:30 POC Ur Test NEG
[2018-09-18] MEDS ORDERED: ePHEDrine sulfate 50 MG/ML AMP IV PRN (10:47)
[2018-09-18] MEDS ORDERED: ATROPINE SULFATE 0.1 MG/ML 10ML SYR IV PRN (10:47)
[2018-09-18] MEDS ORDERED: LIDOCAINE/EPINEPHRINE 1% 20 ML VIAL ONE (11:43)
[2018-09-18] MEDS ORDERED: CONRAY 60% 50 ML VIAL ONE (11:43)
[2018-09-18] MEDS ORDERED: NEOSTIGMINE METHYLSULFATE 5 MG/5 ML SYR ONE (12:58)
[2018-09-18] MEDS ORDERED: GLYCOPYRROLATE 0.2 MG/ML VIAL ONE (12:58)
[2018-09-18] MEDS ORDERED: ETOMIDATE 2 MG/ML 20 ML VIAL IV ONE (12:58)
[2018-09-18] MEDS ORDERED: ROCURONIUM BROMIDE 10 MG/ML 5 ML VIAL ONE (12:58)
[2018-09-18] MEDS ORDERED: ONDANSETRON INJ 2 MG/ML 2 ML VIAL ONE (12:58)
[2018-09-18] MEDS ORDERED: LIDOCAINE HCL 2% 2 ML VIAL/AMP(20MG/ML) INFIL ONE (12:58)
[2018-09-18] MEDS ORDERED: DEXAMETHASONE SOD INJ 4 MG/ML VIAL ONE (12:58)
[2018-09-18] MEDS ORDERED: ePHEDrine sulfate 50 MG/ML SYR ONE (12:58)
[2018-09-18] MEDS ORDERED: PHENYLEPHRINE 100MCG/ML 5ML SYR ONE (12:58)
[2018-09-18] MEDS ORDERED: LARYING-O-JET KIT (LTA) ONE (12:58)
--- NOTE | 2018-09-18 13:07 | Post Operative Brief Note ---
Immediate Post Op Note v1 Date of Surgery September 18, 2018 Pre & Post Diagnosis Operation Date: 09/18/18 11:55 Pre-Op Diagnosis: Elavated liver function Post-Op Diagnosis: Elavated liver function acute cholecystitis, strawberry gallbladder Procedure Operation Date: 09/18/18 11:55 Actual Procedures p Laparoscopic Cholecystectomy with Cholangiogram(Left) - Tito Yoo MD, FACS Surgeon Tito Yoo MD, FACS Gastrointestinal Technician tyler Chase Estimated Blood Loss 5 Findings Consistent with Post-Op Diagnosis
--- NOTE | 2018-09-18 13:25 | Operative Report ---
Post Operative Report Pre & Post Diagnosis Operation Date: 09/18/18 11:55 Pre-Op Diagnosis: Elavated liver function Post-Op Diagnosis: Elavated liver function acute cholecystitis strawberry gallbladder Procedure Operation Date: 09/18/18 11:55 Actual Procedures p Laparoscopic Cholecystectomy with Cholangiogram(Left) - Tito Yoo MD, FACS Patient was brought into the operating theater placed in the supine position general endotracheal anesthesia given patient was in antibiotics a timeout was had after the abdomen was prepped Betadine solution properly draped small incision was made supraumbilically sufficient enough to place a Veress needle followed by CO2 to 15 mmHg followed by 5 mm trocar followed by the scope point of entry expected no intra-identified on direct visualization 5 mm epigastric and 2 5 mm subcostal port were placed with preemptive analgesia 1% Xylocaine plain gallbladder was visualized of the patient was placed in reverse Trendelenburg rotated to the left the wall appear to be quite thickened but it was not significant distended the liver appeared grossly normal extraction were towards the neck of the gallbladder patient had a very large artery at its base I suspect there was right hepatic artery coming off likely superior mesenteric artery rather than its normal course we avoided it but there is significant amount of edema on the wall the gallbladder all the way down towards the neck of the gallbladder were able to identify the cystic duct which was bit larger normal at its takeoff from the gallbladder clipped approximately a small opening cystic duct was made significant amount of really dark bilious material came out there were no evidence of any fragments of stone #4 urethral stress and urethral catheter transverse to the abdominal wall and a 14 Angiocath was positioned in the cystic duct serial x-rays were taken there was flow in the duodenum there was one image I thought there may been something the distal common bile duct we took another image after the patient was placed in reverse Trendelenburg position and appeared to be away suspect there was a bubble. The Cholangiocath was then removed the cystic duct to securely clipped twice the cystic artery was dissected out right at the base of the gallbladder away from the hepatic artery doubly clipped proximally 1 distally and divided posterior branch was similarly clipped gallbladder was removed in antegrade fashion using electrocautery we left this much is posterior peritoneum and possible intact gallbladder was placed in an Endopouch taken out intact through the epigastric port as stated was really thought bilious once we took it out we can identify that the wall was quite thickened I opened the mucosa and it was typical cholesterol mapping of the mucosa significant for a strawberry gallbladder. A subhepatic suprahepatic area was then checked hemostasis appeared satisfactory we placed the camera right subcostal port to visualize the umbilical opening and there was no adhesions identified there at this time all trochars were removed under direct visualization and last the umbilical trocar wounds were closed with 4-0 Monocryl Steri-Strips applied estimated blood loss 5 cc the patient was taken to recovery in good condition addendum Sandi CHASE present throughout the procedure helped with exposure camera work and closing the wound thank you Surgeon Tito Yoo MD, FACS [employer] Operator tyler Chase Estimated Blood Loss 5 Findings Consistent with Post-Op Diagnosis Specimens gallbladder and contents Description of Procedure done I attest to the content of the Intraoperative Record and any orders documented therein. Any exceptions are noted below.
--- NOTE | 2018-09-18 13:57 | Fluoroscopy Report ---
[place] cholangiogram OR HISTORY: Post cholecystectomy. FLUOROSCOPY TIME: 3 seconds. FINDINGS: Fluoroscopy was provided for an intraoperative cholangiogram status post cholecystectomy. C ontrast was injected through the cystic duct remnant. The common bile duct is normal in course and ca liber. There are no filling defects seen within the common bile duct to suggest a retained stone. Co ntrast extends into the small bowel. There is no intrahepatic bile duct dilatation. Tiny filling defe cts within the left hepatic duct possibly related air bubbles. IMPRESSION: Fluoroscopy provided for an intraoperative cholangiogram status post cholecystectomy. No filling defects within the common bile duct. The above report was generated using voice recognition software. It may contain grammatical, syntax or spelling errors. Electronically signed by: Ronni Corea M.D. 09/18/2018 1:56 PM
[2018-09-18] MEDS: fentaNYL citrate 100 MCG/2 ML VIAL IV PRN ×2 (14:03→14:08)
--- NOTE | 2018-09-18 14:06 | Anesthesiology Progress Note ---
Date of Service September 18, 2018 Anesthesia Post Procedure Vital Signs Vital Signs: Temp Pulse Pulse Pulse Resp BP BP 09/18/18 13:51 36.3 C L 72 15 116/92 09/18/18 13:33 36.3 C L 72 15 116/92 09/18/18 10:38 37.5 C 90 20 126/86 09/18/18 07:30 36.6 C 74 17 124/87 09/18/18 06:15 36.7 C 86 18 132/91 09/18/18 05:27 78 18 123/87 09/18/18 04:09 88 18 126/89 09/18/18 02:38 80 18 132/88 09/18/18 00:14 36.4 C L 89 16 134/92 Pulse Ox 09/18/18 13:51 100 09/18/18 13:33 100 09/18/18 10:38 96 09/18/18 07:30 98 09/18/18 06:15 100 09/18/18 05:27 96 09/18/18 04:09 96 09/18/18 02:38 97 09/18/18 00:14 96 Pain Intensity Abdomen: Pain Intensity: 3 Notes Mental Status: alert / awake / arousable Patient Amnestic to Procedure: Yes Nausea / Vomiting: adequately controlled Pain: adequately controlled Airway Patency, RR, SpO2: stable & adequate BP & HR: stable & adequate Hydration State: stable & adequate Anesthetic Complications: no major complications apparent and Pt Satisfied with anesthetic care
--- NOTE | 2018-09-18 15:02 | History & Physical Bridge Note ---
Date of Service September 18, 2018 History & Physical Bridge Note Patient seen and examined this morning prior to lap manuelito. In good spirits. Pain -free. Will get neftaly billings today and plan for dc tomorrow if she is feeling well and LFTs are returning to normal.
[2018-09-18] MEDS ORDERED: LACTATED RINGER'S 1,000 ML IV SCH (15:30)
[2018-09-18] MEDS ORDERED: KETOROLAC 30 MG/ML VIAL IV PRN ×2 (15:34)
[2018-09-18] MEDS ORDERED: ACETAMINOPHEN 325 MG TAB PO PRN (15:34)
[2018-09-18] MEDS: TRAMADOL HCL 50 MG TABLET PO PRN ×2 (15:49→20:00)
[2018-09-18] MEDS: SODIUM CHLORIDE 0.9% 1000ML 1,000 ML IV SCH (17:30)
[2018-09-19] MEDS: PIPERACILLIN/TAZOBACTAM 4.5 GM in DEXTROSE 5% 100 ML IV SCH ×2 (00:06→07:58)
[2018-09-19] MEDS: SODIUM CHLORIDE 0.9% 1000ML 1,000 ML IV SCH (02:39)
--- NOTE | 2018-09-19 06:13 | Surgery Progress Note ---
Date of Service September 19, 2018 Assessment & Plan (1) Elevated liver enzymes: first POD s/p veronica hooker intraop findings discussed with pt ok to d/c today instruction verbalized to pt has aram in office for Wed next week clinically and by history(family) suspect gallbladder the problem (almost classical) rec mitzi hooker'gram r and c explained to pt and SO and agree to proceed they are also aware that all her symp may not be resolved with gallbladder surgery discussed with DR Rm Subjective feels fine no pain no complaints Physical Exam 2 Vital Signs (Past 24 Hours): Last Vital Signs Temp 37.1 C 09/19/18 03:39 Pulse 93 H 09/19/18 03:39 Resp 18 09/19/18 03:39 BP 153/102 H 09/19/18 03:39 Pulse Ox 94 09/19/18 03:39 Physical Exam: alert in no distress resting comfortably Gastrointestinal (Abdomen): trocar sites fine abd neg
--- NOTE | 2018-09-19 07:57 | Anesthesiology Progress Note ---
Date of Service September 19, 2018 Anesthesia Post Procedure Vital Signs Vital Signs: Temp Pulse Pulse Pulse Resp BP BP 09/19/18 07:33 36.7 C 98 H 16 126/82 09/19/18 03:39 37.1 C 93 H 18 153/102 H 09/18/18 22:58 36.7 C 90 18 132/88 09/18/18 19:41 36.7 C 99 H 18 136/90 09/18/18 17:34 36.8 C 92 H 18 123/85 09/18/18 16:36 36.3 C L 85 19 127/83 09/18/18 15:40 36.4 C L 74 18 124/83 09/18/18 15:09 75 18 115/80 09/18/18 14:37 36.6 C 71 14 124/87 09/18/18 14:25 76 14 09/18/18 14:21 69 16 120/79 09/18/18 14:20 67 12 09/18/18 14:16 36.5 C 09/18/18 14:15 66 13 114/74 09/18/18 14:11 68 13 108/76 09/18/18 14:10 68 10 L 09/18/18 14:05 69 15 120/81 09/18/18 14:00 68 16 116/82 09/18/18 13:55 66 14 115/80 09/18/18 13:51 36.3 C L 69 72 13 115/80 116/92 09/18/18 13:50 69 14 09/18/18 13:46 68 15 115/83 09/18/18 13:45 74 17 09/18/18 13:41 72 18 113/81 09/18/18 13:40 70 16 09/18/18 13:36 73 16 121/87 09/18/18 13:35 74 16 09/18/18 13:33 36.3 C L 71 72 15 116/92 116/92 09/18/18 10:38 37.5 C 90 20 126/86 Pulse Ox 09/19/18 07:33 95 09/19/18 03:39 94 09/18/18 22:58 95 09/18/18 19:41 96 09/18/18 17:34 95 09/18/18 16:36 95 09/18/18 15:40 93 09/18/18 15:09 92 09/18/18 14:37 91 09/18/18 14:25 93 09/18/18 14:21 92 09/18/18 14:20 93 09/18/18 14:16 92 09/18/18 14:15 93 09/18/18 14:11 96 09/18/18 14:10 99 09/18/18 14:05 99 09/18/18 14:00 99 09/18/18 13:55 99 09/18/18 13:51 100 09/18/18 13:50 100 09/18/18 13:46 100 09/18/18 13:45 99 09/18/18 13:41 100 09/18/18 13:40 100 09/18/18 13:36 98 09/18/18 13:35 98 09/18/18 13:33 99 09/18/18 10:38 96 Pain Intensity Abdomen: Pain Intensity: 0 Notes Mental Status: alert / awake / arousable and participated in evaluation Patient Amnestic to Procedure: Yes Nausea / Vomiting: adequately controlled Pain: adequately controlled Airway Patency, RR, SpO2: stable & adequate BP & HR: stable & adequate Hydration State: stable & adequate Anesthetic Complications: no major complications apparent and Pt Satisfied with anesthetic care
[2018-09-19 09:11] LABS: Basophils # (auto) 0.01 K/uL (0-0.2); Basophils % (auto) 0.2 %; Eosinophils # (auto) 0.01 K/uL (0-0.5); Eosinophils % (auto) 0.2 %; Hematocrit (blood only) 33.9 % (37-47); Hemoglobin 11.2 g/dL (12.0-16.0); Immature Granulocytes # (auto) 0.02 K/uL (0.00-0.02); Immature Granulocytes % (auto) 0.3 %; Lymphocytes % (auto) 28.6 %; Mean Corpuscular Volume 86.9 fL (80-100); Mean Platelet Volume 11.9 fL (7.4-10.4); Monocytes # (auto) 0.61 K/uL (0.11-0.59); Monocytes % (auto) 9.2 %; Neutrophils # (auto) 4.09 K/uL (1.4-6.5); Neutrophils % (auto) 61.5 %; Platelet Count 220 K/uL (130-400); RDW Coefficient of Variation 15.8 % (11.5-14.5); RDW Standard Deviation 49.9 fL (36.4-46.3); White Blood Count 6.64 K/uL (4.8-10.8)
[2018-09-19 09:32] LABS: INR 1.1 (0.9-1.1); Partial Thromboplastin Ratio 0.9; Partial Thromboplastin Time 23.2 Seconds (21.0-31.0); Prothrombin Time 10.7 Seconds (9.0-12.0)
[2018-09-19 09:48] LABS: Albumin Level 3.3 gm/dl (3.4-5.0); BUN Creatinine Ratio 5.4 (10-20); Calcium 8.7 mg/dl (8.5-10.1); Creatinine Clr Calc Pharmacy 98.4 ml/min; Est GFR (African American) 121.1; Est GFR (Non-African American) 104.5; Potassium 3.4 mmol/L (3.5-5.1)
[2018-09-19 09:51] LABS: Bilirubin,Total 0.7 mg/dl (0.2-1); Globulin 3.3 gm/dl (2.5-4.0); Total Protein 6.6 gm/dl (6.4-8.2)
--- NOTE | 2018-09-19 16:53 | Discharge Summary ---
Date of Service September 19, 2018 Admission HPI Per Admitting Provider The patient is a 37-year-old female most recently admitted to [facility] from a 09/15 through 09/16 with abnormal liver enzymes, that had been improving prior to discharge, and negative CTA of the chest, abdomen and pelvis; negative MRCP and gallbladder ultrasound for acute cholecystitis. Patient had a follow-up appointment with Dr. Bowser from surgery for next week. However, patient has noted above had a heavy meal of macaroni and cheese , developed severe abdominal discomfort, presented to the emergency department for assessment, and had significantly elevated liver enzymes. She was then referred for evaluation for admission. Principal Diagnosis Cholecystitis Discharge Exam Constitutional WD/WN, vitals as above Eyes PERRL, conjunctivae normal, anicteric sclerae Neck normal visual inspection and + thick neck Respiratory normal respiratory effort, lungs clear to auscultation normal respiratory effort Auscultation: lungs clear to auscultation bilaterally Cardiovascular Rate/Rhythm: regular rate and regular rhythm Gastrointestinal (Abdomen) Inspection/Auscultation: abdomen normal to inspection and normal bowel sounds Percussion/Palpation: + abdomen tender Musculoskeletal no cyanosis or clubbing, extremities motor strength 5/5 Skin no rashes, warm and dry Neurologic Speech / Cognition: normal speech Psychiatric Orientation: alert and oriented x 3 Discharge Data Allergies Allergy/AdvReac Type Severity Reaction Status Date / Time codeine Allergy Severe ANAPHYLAXIS Verified 09/18/18 01:31 egg Allergy Severe ANAPHYLAXIS Verified 09/18/18 01:31 Fish Containing Products Allergy Severe Anaphylaxis Verified 09/18/18 05:56 peanut Allergy Severe ANAPHYLAXIS Verified 09/18/18 01:31 shellfish derived Allergy Severe ANAPHYLAXIS Verified 09/18/18 01:31 Beef Containing Products Allergy Unknown Verified 09/18/18 01:31 tree nut Allergy Anaphylaxis Verified 09/18/18 01:31 CATS,DOGS,GRASS,POLLEN,MOLD,TREES,DUST,MITES Allergy Unknown Sneezing Uncoded 01:31 raw tomato, some fresh Allergy sneezing/wa Uncoded 09/18/18 01:31 fruits/vegg teryeyes Consultations 09/18/18 03:07 ED Decision to Admit Stat 09/18/18 05:51 Consult Case Management - Discharge Planning Routine Consult Gastroenterology Routine Consult General Surgery Routine Procedures Performed Operation Date: 09/18/18 11:55 Actual Procedures p Laparoscopic Cholecystectomy with Cholangiogram(Left) - Tito Yoo MD, FACS Ordered Studies 09/18/18 01:28 US gallbladder Urgent 09/18/18 10:30 [place] cholangiogram OR Routine Hospital Course (1) Elevated liver enzymes: Cholecytitis. S/p lap manuelito with Dr. Yoo on 09/18 without any complications. Almost pain-free on 09/19, and ready to go home. Cleared by surgery to be discharged. - Discharge with surgical follow up - Follow up with GI as normal for Crohn's (2) Right upper quadrant abdominal pain: See above. (3) Mixed connective tissue disease: Held immunosuppressive agents while inpatient. Return to normal after discharge. (4) Crohns disease: Held immunosuppressive agents while inpatient. Return to normal after discharge. (5) GERD (gastroesophageal reflux disease): Pantoprazole 40 mg IV daily (6) Hypertension: Held lisinopril and amlodipine. Return on discharge. (7) Anxiety: No changes inpatient. (8) Hypothyroid: No changes inpatient. Total Time Total Time Spent Total Time Spent (In Minutes): 40 Total Time Includes: Examination of the Patient, Discharge Planning and Medication Reconciliation Discharge Plan Discharge Items Patient Disposition: Home - Self-Care Reason For Visit: ABNORMAL LFT'S Discharge Diagnosis: Inflamed gallbladder Condition: Good Discharge Goals: Improve disease control and Improve function Activity: Resume your previous activity Non-emergency contact: Surgeon Call non-emergency contact if: you have any medication questions, your temperature is above 101.5, your wound has increased redness and your wound has increased drainage Follow-up/Referrals: Tito Yoo MD, FACS [Surgeon] - (Please follow-up with Dr. Yoo in the General Surgery clinic in 1-2 weeks. Please call the clinic at [phone] to schedule this follow-up appointment. ) Diet: Regular Addtl Provider Instructions: You have gauze dressings over your steri-strips. Please leave these dressings on for the next 2 days. You may remove the tape and gauze dressings on Saturday. You have steri-strips over your incisions. Please do not pick at or pull off these. They will fall off by themselves. You may shower tomorrow, but please do not soak or scrub your incisions. Do not submerge your incisions in any pools, baths, or hot tubs. Please call the General Surgery clinic at [phone] to make your follow-up appointment. Please call with any questions or concerns. Prescriptions: Continue amlodipine [Norvasc] 10 mg Tablet 10 mg PO DAILY RF: 0 cetirizine-pseudoephedrine [Zyrtec-D] 5-120 mg Tablet Extended Release 12 Hr 1 tab PO Q12H RF: 0 cholecalciferol (vitamin D3) [Vitamin D3] 2,000 unit Tablet 2,000 unit PO DAILY RF: 0 duloxetine 30 mg Capsule,Delayed Release(Dr/Ec) 30 mg PO DAILY RF: 0 duloxetine 60 mg Capsule,Delayed Release(Dr/Ec) 60 mg PO DAILY RF: 0 Alma Rosa 0.35 mg PO DAILY RF: 0 epinephrine [EpiPen] 0.3 mg/0.3 mL Auto-Injector 0.3 mg IM Q3H PRN (Reason: Allergy Symptoms) RF: 0 fluticasone [Flonase Allergy Relief] 50 mcg/actuation [place],Suspension 2 spray INTRANASAL DAILY RF: 0 hydroxychloroquine 200 mg Tablet 200 mg PO Q12H RF: 0 infliximab 100 mg Recon Soln 1 dose pk IV Q8WK RF: 0 levothyroxine 100 mcg Tablet 100 mcg PO DAILY RF: 0 liothyronine 5 mcg Tablet 5 mcg PO DAILY RF: 0 lisinopril 20 mg Tablet 20 mg PO DAILY RF: 0 mercaptopurine 50 mg Tablet 75 mg PO DAILY RF: 0 montelukast 10 mg Tablet 10 mg PO PM RF: 0 pantoprazole 40 mg Tablet,Delayed Release (Dr/Ec) 40 mg PO DAILY RF: 0 ranitidine HCl 300 mg Tablet 300 mg PO Q12H RF: 0 Visit Report Forms: Smoking Cessation Stand-Alone Forms: My [facility], Opioid Pain Management, Work/ School Release (Inpt) Discharge Orders: Discharge Order (Routine); Ordered 09/19/18 Ordered By: Florian Cabrera Admission Data Admit Date/Time: 09/18/18 05:06 Attending Provider: Florian Cabrera Admit Provider: Xavi Zelaya Primary Care Provider: Ferny Solorzano Other Providers: Florian Cabrera ; Tito Yoo ; Live Villagomez ; Xavi Zelaya Service: Medical Other Interventions: Discharge Summary Assessment (RN) Last Done: 09/19/18 12:32 DC Date/Time DO NOT enter until pt leaves facility: 09/19/18 13:30
== END 2018-09-19 13:30 | disposition home or self-care (01) ==
LOC: ED → 3N → SUATTDRO 05:06 → 3N 05:31